=== PATIENT | male | born 1935 | race Caucasian/White ===

== ENCOUNTER 2017-12-18 19:16 | Inpatient (IN) | payer MEDICARE, OTHER, SELFPAY ==
[2017-12-18 19:15] VITALS: BP 143/58; PULSE 80; RESP 18; TEMP 37.3; O2SAT 93; BMI 27.6
[2017-12-18] MEDS: SODIUM CHLORIDE 0.9% 1,000 ML 1000 ML IV (19:54)
[2017-12-18] MEDS: ONDANSETRON 4 MG/2 ML INJ IV (19:54)
[2017-12-18 20:11] VITALS: BP 138/66; PULSE 80; RESP 17; O2SAT 94
[2017-12-18] MEDS: CEFTRIAXONE 1 GM/50 ML FROZ.PIGGY IV (20:13)
[2017-12-18 20:25] LABS: Add Manual Diff / Slide Review NO; Eosinophils Percent Auto 0.3 % (2-4); Hematocrit 35.8 % (41-53); Hemoglobin 11.7 g/dL (13.5-17.5); Lymphocytes Percent Auto 1.4 % (25-40); Mean Corpuscular HGB Conc 32.7 % (30-36); Mean Corpuscular Hemoglobin 29.6 PG (26-34); Mean Corpuscular Volume 90.5 fL (80-100); Monocytes Percent Auto 7.3 % (3-14); Neutrophils Absolute Auto 14600 /uL (3000-5900); Platelet Count 225 X10^3/uL (150-400); Red Blood Cell Count 3.96 X10^6/uL (4.5-5.9); Red Cell Distribution Width 15.7 % (11.6-14.8)
[2017-12-18 20:38] LABS: Alanine Aminotransferase 30 IU/L (21-72); Albumin Globulin Ratio 1.4 (1.0-2.8); Alkaline Phosphatase 66 U/L (38-126); Aspartate Aminotransferase 21 IU/L (17-59); BUN Creatinine Ratio 27.4 (6-22); Bilirubin Total 0.4 mg/dL (0.2-1.3); Blood Urea Nitrogen 52 mg/dL (9-20); Calcium 8.3 mg/dL (8.4-10.2); Carbon Dioxide 25 mmol/L (22-32); Chloride 107 mmol/L (98-107); Estimated Glomerular Filt Rate 34.2 mL/min (>60); Globulin 2.9 g/dL (1.7-4.1); Glucose 149 mg/dL (80-110); HEMOLYSIS < 15 (0-50); Potassium 5.1 mmol/L (3.4-5.1); Sodium 144 mmol/L (137-145); Total Protein 6.9 g/dL (6.3-8.2)
[2017-12-18 20:51] VITALS: BP 102/43; PULSE 77; RESP 16; O2SAT 95
[2017-12-18 20:51] LABS: Lactate (Lactic Acid) 1.3 mmol/L (0.7-2.1)
--- NOTE | 2017-12-18 21:16 | ED_ITS ---
HPI - Nausea/Vomiting/Diarrhea General Chief complaint: Nausea/Vomiting/Diarrhea Stated complaint: Nausea, Emesis Time Seen by Provider: 12/18/17 19:33 Source: patient, family and EMS Mode of arrival: EMS Limitations: no limitations History of Present Illness HPI Narrative: 82-year-old male with no significant medical history presents with 2-3 days of nausea, vomiting, fever as high as 102 F and shaking chills. He has become dizzy, weak and lightheaded. He is having difficulty getting around at home. He denies recent travel, exposure to bad food, new medications , exposure to bad food. 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 She is well and free of complaint. Patient denies any chest pain or shortness of breath. He has no abdominal pain or back pain MD complaint: nausea and vomiting Onset (ago): day(s) Description of Vomiting: food contents Description of Diarrhea: none Associated Abdominal Pain: No Severity: moderate Relieving factors: none Exacerbating factors: none Associated symptoms: fever/chills and weakness Related Data Home Medications Medication Instructions Recorded Confirmed finasteride 5 mg PO DAILY 12/18/17 12/19/17 glipizide 10 mg PO 1-2XD 12/18/17 12/19/17 lisinopril 10 mg PO DAILY 12/18/17 12/19/17 metformin 850 mg PO BID 12/18/17 12/19/17 methotrexate sodium 20 mg/m2 PO QWEEK 12/18/17 12/19/17 tamsulosin 0.4 mg PO DAILY 12/18/17 12/19/17 Centrum Silver Men 1 tab PO DAILY 12/19/17 12/19/17 cranberry 100 mg PO DAILY 12/19/17 12/19/17 docusate sodium 200 mg DAILY 12/19/17 12/19/17 Allergies Allergy/AdvReac Type Severity Reaction Status Date / Time No Known Drug Allergies Allergy Verified 12/18/17 19:20 Review of Systems Review of Systems All systems reviewed & are unremarkable except as noted in HPI and below Constitutional Reports chills, Reports fever(s), Denies lethargy and Reports weakness Eyes Denies change in vision, Denies eye discharge, Denies irritation and Denies loss of vision ENT Ears, Nose, Mouth, and Throat: Denies change in voice, Denies neck pain and Denies sore throat Cardiovascular Denies chest pain, Denies irregular heart rhythm, Denies lightheadedness, Denies palpitations, Denies dyspnea, Denies dyspnea on exertion and Denies orthopnea Respiratory Denies cough, Denies dyspnea, Denies dyspnea on exertion and Denies wheezing Gastrointestinal Gastrointestinal: Reports abdominal pain, Denies change in bowel habits, Denies diarrhea, Reports nausea and Reports vomiting Genitourinary Denies hematuria, Denies flank pain, Denies urinary incontinence and Denies urinary urgency Musculoskeletal Denies neck pain Integumentary/Breasts Denies pruritus, Denies erythema, Denies rash and Denies wounds Neurologic Denies confusion, Denies loss of vision and Reports weakness Psychiatric Denies anxiety, Denies confusion, Denies depression, Denies homicidal ideation and Denies suicidal ideation Endocrine Denies palpitations Hematologic/Lymphatic Denies easy bruising Allergic/Immunologic Denies wheezing PFSH Medical History Diabetes (Acute) HTN (hypertension) (Acute) Social History household members: spouse Smoking Status: Former smoker alcohol intake: former Exam Narrative Exam Narrative: 82-year-old male appears unwell, poor color Initial Vital Signs Initial Vital Signs: Vital Signs Temperature 99.1 F 12/18/17 19:15 Pulse Rate 80 12/18/17 19:15 Respiratory Rate 18 12/18/17 19:15 Blood Pressure 143/58 H 12/18/17 19:15 Pulse Oximetry 93 12/18/17 19:15 Const General: cooperative, well developed and acute distress Nutritional Appearance: well nourished and thin Orientation: alert, awake, oriented x3 and not confused [facility] Head: normocephalic and atraumatic Ears: external ears normal and TM's normal bilaterally Nose: external nose normal and No nasal discharge Face and sinus: sinuses nontender, face symmetric, no sinus tenderness and dry mucous membranes Mouth: moist mucous membranes Teeth and gingiva: dentition normal Throat: tonsils normal and uvula midline Eyes General: appearance normal, both eyes and all related structures Eyelids: eyelids normal Conjunctivae: conjunctivae normal Sclera: sclerae normal Pupils: PERRL EOM: EOM intact bilaterally Neck Neck: normal visual inspection, trachea midline, No lymphadenopathy, No midline deformity and No JVD Lymphatic: No lymphedema Chest Chest: normal inspection of the chest Cardio Rate: regular rate Rhythm: regular rhythm Heart Sounds: no click, no gallops, no murmurs and no rubs Pulses: normal peripheral pulses GI Inspection: non-distended Palpation: soft, no hepatosplenomegaly, No guarding, No pulsatile mass and No tender Auscultation: normal bowel sounds Back/Spine/Pelvis Back: No CVA tenderness Cervical Spine: cervical ROM normal and No pain with cervical ROM Thoracic/Lumbar Spine: thoracic and lumbar spine normal to inspection Neuro General: alert, oriented x3, gait normal and no focal motor deficits Speech: speech normal Extrem General: full ROM, no clubbing, cyanosis or edema, no pedal edema and no calf tenderness Course Orders Ordered: ED Orders 12/19/17 00:02 Clostridium Difficile Tox PCR Stat Stool Culture Stat 12/19/17 00:28 MRSA PCR Stat 12/19/17 05:00 Basic Metabolic Panel Stat Complete Blood Count AUTO DIFF Stat Sodium Chloride (Normal Saline 0.9%) 1,000 mls @ 150 mls/hr IV CONT SUSAN Last Admin: 12/19/17 06:42 Dose: 150 mls/hr Infusion: 12/19/17 06:42 Dose: 150 mls/hr Admin: 12/19/17 00:15 Dose: 150 mls/hr Ondansetron HCl (Zofran) 4 mg IV Q4HR PRN PRN Reason: Nausea And Vomiting Discontinued Medications Sodium Chloride (Normal Saline 0.9%) 1,000 mls @ 1,000 mls/hr IV BOLUS ONE Stop: 12/18/17 20:42 Last Infusion: 12/18/17 20:45 Dose: 0 mls/hr Admin: 12/18/17 19:54 Dose: 1,000 mls/hr Ceftriaxone Sodium/Dextrose (Rocephin) 1 gm in 50 mls @ 100 mls/hr IV NOW ONE Stop: 12/18/17 20:33 Last Infusion: 12/18/17 20:46 Dose: 0 mls/hr Admin: 12/18/17 20:13 Dose: 100 mls/hr Ondansetron HCl (Zofran) 4 mg IV NOW ONE Stop: 12/18/17 19:44 Last Admin: 12/18/17 19:54 Dose: 4 mg Vital Signs - 8 hr 12/19/17 00:18 Temperature 98.2 F Pulse Rate 82 Respiratory Rate 20 Blood Pressure 132/60 Pulse Oximetry 97 MDM - Nausea/Vomiting/Diarrhea Differential Diagnosis Likely traveler's diarrhea, food poisoning, gastroenteritis, clostridium difficile infection, drug-induced nausea and vomiting, dehydration and other Medical Records Attestation: I reviewed the patient's medical records. Lab Data Attestation: I reviewed the patient's lab results. Result diagrams: 12/18/17 20:16 12/18/17 20:16 Lab Results 12/18/17 12/18/17 12/18/17 Range/Units 20:16 20:16 20:16 WBC 16.0 H (4.5-11.0) X10^3/uL RBC 3.96 L (4.5-5.9) X10^6/uL Hgb 11.7 L (13.5-17.5) g/dL Hct 35.8 L (41-53) % MCV 90.5 (80-100) fL MCH 29.6 (26-34) PG MCHC 32.7 (30-36) % RDW 15.7 H (11.6-14.8) % Plt Count 225 (150-400) X10^3/uL Neut % (Auto) 91.0 H (50-75) % Lymph % (Auto) 1.4 L (25-40) % [place] % (Auto) 7.3 (3-14) % Eos % (Auto) 0.3 L (2-4) % Baso % (Auto) 0.0 (0-2) % Neut # (Auto) 34674 H (7746-1386) /uL Sodium 144 (137-145) mmol/L Potassium 5.1 (3.4-5.1) mmol/L Chloride 107 (98-107) mmol/L Carbon Dioxide 25 (22-32) mmol/L BUN 52 H (9-20) mg/dL Creatinine 1.90 H (0.66-1.25) mg/dL Estimated GFR 34.2 L (>60) mL/min BUN/Creatinine Ratio 27.4 H (6-22) Glucose 149 H (80-110) mg/dL Lactate 1.3 (0.7-2.1) mmol/L Calcium 8.3 L (8.4-10.2) mg/dL Total Bilirubin 0.4 (0.2-1.3) mg/dL AST 21 (17-59) IU/L ALT 30 (21-72) IU/L Alkaline Phosphatase 66 (38-126) U/L Total Protein 6.9 (6.3-8.2) g/dL Albumin 4.0 (3.5-5.0) g/dL Globulin 2.9 (1.7-4.1) g/dL Albumin/Globulin Ratio 1.4 (1.0-2.8) Nasal Screen MRSA (PCR) (Negative) 12/19/17 Range/Units 00:28 WBC (4.5-11.0) X10^3/uL RBC (4.5-5.9) X10^6/uL Hgb (13.5-17.5) g/dL Hct (41-53) % MCV (80-100) fL MCH (26-34) PG MCHC (30-36) % RDW (11.6-14.8) % Plt Count (150-400) X10^3/uL Neut % (Auto) (50-75) % Lymph % (Auto) (25-40) % [place] % (Auto) (3-14) % Eos % (Auto) (2-4) % Baso % (Auto) (0-2) % Neut # (Auto) (1790-9506) /uL Sodium (137-145) mmol/L Potassium (3.4-5.1) mmol/L Chloride (98-107) mmol/L Carbon Dioxide (22-32) mmol/L BUN (9-20) mg/dL Creatinine (0.66-1.25) mg/dL Estimated GFR (>60) mL/min BUN/Creatinine Ratio (6-22) Glucose (80-110) mg/dL Lactate (0.7-2.1) mmol/L Calcium (8.4-10.2) mg/dL Total Bilirubin (0.2-1.3) mg/dL AST (17-59) IU/L ALT (21-72) IU/L Alkaline Phosphatase (38-126) U/L Total Protein (6.3-8.2) g/dL Albumin (3.5-5.0) g/dL Globulin (1.7-4.1) g/dL Albumin/Globulin Ratio (1.0-2.8) Nasal Screen MRSA (PCR) Negative for mrsa (Negative) Point of Care Testing Glucose POC 156 Urine Dip Bedside Urine Glucose Negative Bedside Urine Bilirubin - Negative Bedside Urine Ketone - Negative Urine Specific [place] 1.025 Bedside Urine Occult Blood - Negative Bedside Urine pH 6.0 Bedside Urine Protein - Negative Bedside Urine Urobilinogen - Negative Bedside Urine Nitrite - Negative Bedside Urine Leukocytes - Negative Esterase Imaging Data Abdominal x-ray: Attestation: I personally reviewed and interpreted this imaging study as follows: My impression: non obstructive bowel gas pattern MDM Narrative Medical decision making narrative: 82-year-old diabetic hypertensive with fever and shaking chills and clearly dehydrated will need admission to the hospital for further evaluation and stabilization of his condition. Source of septic findings not obvious in the emergency department as the patient has very little complaint and minimal suggestion of etiology at onset. Discharge Plan Departure Patient Disposition: Admitted As Inpatient Clinical Impression: Sepsis, Acute renal failure, Acute dehydration Discharge Date/Time: 12/18/17 23:59 Interventions: ED Discharge Assessment Last Done: 12/18/17 23:58 Admit Date/Time: 12/18/17 23:51 Admit Provider: Pauline Acharya
--- NOTE | 2017-12-18 21:24 | DI.RAD.S_ITS ---
PROCEDURE: XR ACUTE ABDOMEN SERIES INDICATIONS: 82-year-old man with nausea and vomiting. TECHNIQUE: One view chest and two views of the abdomen were acquired. COMPARISON: [facility], , CHEST 2VW, 05/28/2013, 14:44. FINDINGS: Surgical changes and devices: None. Chest: Mild left basilar infiltrate or atelectasis. There is mild left hemidiaphragm elevation.. Heart size is normal. No pleural effusions. No pneumoperitoneum. Abdomen: A large amount of stool in colon. Bowel gas pattern is normal. No suspicious calcifications. Visualized solid organ contours appear normal. Bones: No suspicious bony lesions. IMPRESSION: 1. A large amount of stool in colon consistent with constipation. 2. Left basilar pneumonia or atelectasis. Dictated by: Shiraz Yeager M.D. on 12/19/2017 at 10:02 Approved by: Shiraz Yeager M.D. on 12/19/2017 at 10:03
[2017-12-18 21:34] VITALS: BP 116/65
[2017-12-18 22:49] VITALS: BP 109/56; PULSE 81; RESP 18; TEMP 37.2; O2SAT 94
[2017-12-18 23:58] VITALS: BMI 27.6
[2017-12-19] VITALS (8 sets, daily range): BP systolic 106–144; BP diastolic 50–68; PULSE 54–82; RESP 14–67; TEMP 36.7–37.7; O2SAT 97–99
--- NOTE | 2017-12-19 | DI.US.S_ITS ---
PROCEDURE: US RENAL COMPLETE INDICATIONS: ACUTE RENAL FAILURE TECHNIQUE: Real-time scanning was performed of the kidneys and bladder, with image documentation. COMPARISON: None. FINDINGS: Kidneys: Kidneys are normal in size. Right kidney measures 11.0 cm long; left kidney measures 10.1 cm long. Right renal cortical thickness is 2.1 cm; left renal cortical thickness is 1.8 cm. Renal cortical echotexture is normal. No hydronephrosis or nephrolithiasis. No suspicious solid mass lesions. Bladder: Pre-void bladder volume is 487 mL. Post-void residual is 287 mL. Pre-void images demonstrate no intraluminal masses or stones. On pre-void images, neither ureteral jets are noted with color Doppler interrogation. (Of note, ureteral jets may not be detectable in up to 25% of cases due to insufficient differences in specific gravity between ureteral and bladder urine). Miscellaneous: No free pelvic fluid. IMPRESSION: 1. Normal sonographic appearance of the kidneys bilaterally. 2. Roughly 287 cc urinary bladder postvoid. Dictated by: Alexandre Hernandez [facility] Interpreted: Kenneth Bales MD on 12/19/2017 at 12:11 Approved by: Kenneth Bales M.D. on 12/19/2017 at 14:50
[2017-12-19] MEDS: SODIUM CHLORIDE 0.9% 1,000 ML 150 ML IV ×3 (00:15→19:50)
--- NOTE | 2017-12-19 00:39 | PC.ADMIT ---
[facility] Admission Note: The patient,Jas Zuniga,82 y/o, was given written information regarding hospital policies, unit procedures and contact persons. Patient's smoking status: Former smoker. Vital Signs - 8 hr 12/18/17 19:15 12/18/17 20:11 12/18/17 20:51 Temperature 99.1 F Pulse Rate 80 80 77 Respiratory Rate 18 17 16 Blood Pressure 143/58 H Blood Pressure [Left Arm] 138/66 102/43 L Pulse Oximetry 93 94 95 12/18/17 21:34 12/18/17 22:49 12/19/17 00:18 Temperature 98.9 F 98.2 F Pulse Rate 81 82 Respiratory Rate 18 20 Blood Pressure 132/60 Blood Pressure [Left Arm] 116/65 109/56 L Pulse Oximetry 94 97 Pt arrived via WC in NAD. VSS, afebrile. Denies pain. Denies N/V. Sp02 98% RA. Reports last BM 12/15/17 stating this is normal for him, he frequently goes 7 days with no BM. Unable to collect stool specimen as ordered at this time. IVF infusing per orders. NPO initiated, pt verbalized understanding. Voided via urinal, dark arun urine. Oriented to room, call light and plan of care. Verbalized understanding. Will monitor.
[2017-12-19 07:15] LABS: Add Manual Diff / Slide Review NO; Basophils Percent Auto 0.3 % (0-2); Eosinophils Percent Auto 1.5 % (2-4); Hematocrit 30.7 % (41-53); Hemoglobin 10.1 g/dL (13.5-17.5); Lymphocytes Percent Auto 10.6 % (25-40); Mean Corpuscular HGB Conc 32.8 % (30-36); Mean Corpuscular Hemoglobin 29.8 PG (26-34); Mean Corpuscular Volume 90.8 fL (80-100); Monocytes Percent Auto 10.8 % (3-14); Neutrophils Absolute Auto 10300 /uL (3000-5900); Neutrophils Percent Auto 76.8 % (50-75); Platelet Count 184 X10^3/uL (150-400); Red Blood Cell Count 3.39 X10^6/uL (4.5-5.9); Red Cell Distribution Width 15.5 % (11.6-14.8); White Blood Cell Count 13.4 X10^3/uL (4.5-11.0)
[2017-12-19 07:28] LABS: BUN Creatinine Ratio 30.6 (6-22); Blood Urea Nitrogen 52 mg/dL (9-20); Calcium 7.8 mg/dL (8.4-10.2); Carbon Dioxide 22 mmol/L (22-32); Chloride 111 mmol/L (98-107); Estimated Glomerular Filt Rate 38.9 mL/min (>60); Glucose 100 mg/dL (80-110); HEMOLYSIS < 15 (0-50); Sodium 143 mmol/L (137-145)
--- NOTE | 2017-12-19 11:08 | DI.RAD.S_ITS ---
PROCEDURE: XR CHEST 1V INDICATIONS: fever TECHNIQUE: One view of the chest was acquired. COMPARISON: [facility], , CHEST 2VW, 05/28/2013, 14:44. FINDINGS: Surgical changes and devices: None. Lungs and pleura: There is infiltrate in the left midlung zone. No pleural effusions or pneumothorax. Lungs are clear. Mediastinum: Mediastinal contours appear normal. Heart size is normal. Bones and chest wall: No suspicious bony lesions. Overlying soft tissues appear unremarkable. IMPRESSION: Infiltrate in the left midlung zone suspicious for pneumonia. Dictated by: Shiraz Yeager M.D. on 12/19/2017 at 15:31 Approved by: Shiraz Yeager M.D. on 12/19/2017 at 15:32
--- NOTE | 2017-12-19 11:14 | PM.HP.1 ---
History of Present Illness Date Patient Seen: 12/19/17 Chief complaint: Nausea, Emesis Narrative: Patient is a 82 y/o male who was in his usual state of health until yesterday when he developed an episode of nausea and vomiting yesterday morning. He denies any associated abdominal pain, diarrhea, hemetemsis, melena, or bright red blood per rectum. He had no dysphagia, odynophagia, or heart burn. Patient ate some donuts later and vomitted again. He reports a fever to 101 but no shortness of breath, cough, headache, chills, or runny nose. He denies chestpain, palpitations, orthopnea, or ELENA. He has no recent sick contacts. He has been taking his usual medications. Patient was [facility] to the ED for evaluation. Patient was found to have an elevated WBC, elevated Bun/Creatinine, but no obvious source of infection. His KUB was unremarkable except for stool. Patient has had no further nausea or vomiting since admission. 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) Psoriasis (Acute) Family & Social History Family History: Reviewed 12/19/17 by Pauline Acharya MD Social History: household members spouse Prior Living Arrangements House Safety & Behavioral: Feels Safe in Current Yes Environment Been Physically Hurt or No Threatened By a Person Suicidal Ideation Description None Suicide Plan Description No Plan Tobacco & Substance use: Smoking Status Former smoker alcohol intake former alcohol intake frequency 0-2 drinks per day Substance Use Type does not use Meds Home Medications Medication Instructions Recorded Confirmed Type finasteride 5 mg PO DAILY 12/18/17 12/19/17 History glipizide 10 mg PO 1-2XD 12/18/17 12/19/17 History lisinopril 10 mg PO DAILY 12/18/17 12/19/17 History metformin 850 mg PO BID 12/18/17 12/19/17 History methotrexate sodium 20 mg/m2 PO QWEEK 12/18/17 12/19/17 History tamsulosin 0.4 mg PO DAILY 12/18/17 12/19/17 History Centrum Silver Men 1 tab PO DAILY 12/19/17 12/19/17 History cranberry 100 mg PO DAILY 12/19/17 12/19/17 History docusate sodium 200 mg DAILY 12/19/17 12/19/17 History Allergies Allergy/AdvReac Type Severity Reaction Status Date / Time No Known Drug Allergies Allergy Verified 12/18/17 19:20 Review of Systems Review of Systems All systems reviewed & are unremarkable except as noted in HPI and below Exam Vital Signs (past 8 hours): - 12/19/17 08:02 Temperature 99.7 F H Pulse Rate 68 Respiratory Rate 14 Blood Pressure 106/68 Pulse Oximetry 97 Oxygen Delivery Method Room Air Const General: cooperative, healthy appearing and comfortable [facility] Head: normal to inspection, normocephalic and atraumatic Ears: hearing grossly normal bilaterally and external ears normal Nose: external nose normal and nares normal Face and sinus: normal facial exam Mouth: oral mucosae normal Teeth and gingiva: dentition normal Throat: posterior oropharynx normal and uvula midline Eyes Eyelids: eyelids normal Conjunctivae: conjunctivae normal Sclera: sclerae normal Pupils: PERRL EOM: EOM intact bilaterally Neck Carotids: normal carotid upstroke Chest Chest: normal inspection of the chest Resp Effort & Inspection: normal respiratory effort and able to speak in complete sentences Auscultation: clear to auscultation bilaterally Cardio Palpation: normal PMI Rate: regular rate Rhythm: regular rhythm Heart Sounds: S1 normal and S2 normal GI Inspection: normal to inspection Palpation: soft and no hepatosplenomegaly Percussion: normal to percussion Auscultation: normal bowel sounds Back/Spine/Pelvis Thoracic/Lumbar Spine: thoracic and lumbar spine normal to inspection Skin Lesions: no lesions Rashes: no rashes Nails: normal Extrem General: normal to inspection and no pedal edema Left upper extremity: normal to inspection Right lower extremity: normal to inspection Left lower extremity: normal to inspection Psych Appearance: grossly normal Mental Status: mental status grossly normal Mood: congruent mood Affect: normal affect Attitude: cooperative Thought Process: normal Thought Content: normal Judgment: judgment good Objective Labs Result Diagrams: 12/19/17 06:40 12/19/17 06:40 Labs: Laboratory Results - last 24 hr 12/18/17 12/18/17 12/18/17 20:16 20:16 20:16 WBC 16.0 H RBC 3.96 L Hgb 11.7 L Hct 35.8 L MCV 90.5 MCH 29.6 MCHC 32.7 RDW 15.7 H Plt Count 225 Neut % (Auto) 91.0 H Lymph % (Auto) 1.4 L [place] % (Auto) 7.3 Eos % (Auto) 0.3 L Baso % (Auto) 0.0 Neut # (Auto) 24798 H Sodium 144 Potassium 5.1 Chloride 107 Carbon Dioxide 25 BUN 52 H Creatinine 1.90 H Estimated GFR 34.2 L BUN/Creatinine Ratio 27.4 H Glucose 149 H Lactate 1.3 Calcium 8.3 L Total Bilirubin 0.4 AST 21 ALT 30 Alkaline Phosphatase 66 Total Protein 6.9 Albumin 4.0 Globulin 2.9 Albumin/Globulin Ratio 1.4 Nasal Screen MRSA (PCR) 12/19/17 12/19/17 12/19/17 00:28 06:40 06:40 WBC 13.4 H RBC 3.39 L Hgb 10.1 L Hct 30.7 L MCV 90.8 MCH 29.8 MCHC 32.8 RDW 15.5 H Plt Count 184 Neut % (Auto) 76.8 H Lymph % (Auto) 10.6 L [place] % (Auto) 10.8 Eos % (Auto) 1.5 L Baso % (Auto) 0.3 Neut # (Auto) 05235 H Sodium 143 Potassium 5.0 Chloride 111 H Carbon Dioxide 22 BUN 52 H Creatinine 1.70 H Estimated GFR 38.9 L BUN/Creatinine Ratio 30.6 H Glucose 100 Lactate Calcium 7.8 L Total Bilirubin AST ALT Alkaline Phosphatase Total Protein Albumin Globulin Albumin/Globulin Ratio Nasal Screen MRSA (PCR) Negative for mrsa Assessment & Plan (1) Psoriasis: Problem details: Hold methotrexate for now. Can resume as an outpatient Current visit: Yes Status: Acute (2) Diabetes: Problem details: Hold metformin and glipizide for now. Will cover with lantus and aspart. Will check Hgb A1c and fasting lipids Current visit: Yes Status: Acute (3) HTN (hypertension): Problem details: Hold lisinopril given elevated creatinine Current visit: Yes Status: Acute (4) Nausea & vomiting: Problem details: continue IV hydrations and antiemetics Current visit: Yes Status: Acute (5) Acute renal failure: Problem details: hold lisinopril, Continue IV hydration, Check renal ultrasound Current visit: Yes Status: Acute (6) Acute dehydration: Problem details: Continue IV hydration Current visit: Yes Status: Acute Plan: Assessment/Plan Narrative: Repeat Chest Xray to r/o infiltrate Full code Quality VTE Deep Vein Thrombosis/Pulmonary Embolism Present on Admission: No
--- NOTE | 2017-12-19 11:26 | P.HP_ITS ---
History of Present Illness Date Patient Seen: 12/19/17 Chief complaint: Nausea, Emesis Narrative: Patient is a 82 y/o male who was in his usual state of health until yesterday when he developed an episode of nausea and vomiting yesterday morning. He denies any associated abdominal pain, diarrhea, hemetemsis, melena, or bright red blood per rectum. He had no dysphagia, odynophagia, or heart burn. Patient ate some donuts later and vomitted again. He reports a fever to 101 but no shortness of breath, cough, headache, chills, or runny nose. He denies chestpain, palpitations, orthopnea, or ELENA. He has no recent sick contacts. He has been taking his usual medications. Patient was BIBM to the ED for evaluation. Patient was found to have an elevated WBC, elevated Bun/ Creatinine, but no obvious source of infection. His KUB was unremarkable except for stool. Patient has had no further nausea or vomiting since admission. 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) Psoriasis (Acute) Family & Social History Family History: Reviewed 12/19/17 by Pauline Acharya MD Social History: household members spouse Prior Living Arrangements House Safety & Behavioral: Feels Safe in Current Yes Environment Been Physically Hurt or No Threatened By a Person Suicidal Ideation Description None Suicide Plan Description No Plan Tobacco & Substance use: Smoking Status Former smoker alcohol intake former alcohol intake frequency 0-2 drinks per day Substance Use Type does not use Meds Home Medications Medication Instructions Recorded Confirmed Type finasteride 5 mg PO DAILY 12/18/17 12/19/17 History glipizide 10 mg PO 1-2XD 12/18/17 12/19/17 History lisinopril 10 mg PO DAILY 12/18/17 12/19/17 History metformin 850 mg PO BID 12/18/17 12/19/17 History methotrexate sodium 20 mg/m2 PO QWEEK 12/18/17 12/19/17 History tamsulosin 0.4 mg PO DAILY 12/18/17 12/19/17 History Centrum Silver Men 1 tab PO DAILY 12/19/17 12/19/17 History cranberry 100 mg PO DAILY 12/19/17 12/19/17 History docusate sodium 200 mg DAILY 12/19/17 12/19/17 History Allergies Allergy/AdvReac Type Severity Reaction Status Date / Time No Known Drug Allergies Allergy Verified 12/18/17 19:20 Review of Systems Review of Systems All systems reviewed & are unremarkable except as noted in HPI and below Exam Vital Signs (past 8 hours): - 12/19/17 08:02 Temperature 99.7 F H Pulse Rate 68 Respiratory Rate 14 Blood Pressure 106/68 Pulse Oximetry 97 Oxygen Delivery Method Room Air Const General: cooperative, healthy appearing and comfortable [facility] Head: normal to inspection, normocephalic and atraumatic Ears: hearing grossly normal bilaterally and external ears normal Nose: external nose normal and nares normal Face and sinus: normal facial exam Mouth: oral mucosae normal Teeth and gingiva: dentition normal Throat: posterior oropharynx normal and uvula midline Eyes Eyelids: eyelids normal Conjunctivae: conjunctivae normal Sclera: sclerae normal Pupils: PERRL EOM: EOM intact bilaterally Neck Carotids: normal carotid upstroke Chest Chest: normal inspection of the chest Resp Effort & Inspection: normal respiratory effort and able to speak in complete sentences Auscultation: clear to auscultation bilaterally Cardio Palpation: normal PMI Rate: regular rate Rhythm: regular rhythm Heart Sounds: S1 normal and S2 normal GI Inspection: normal to inspection Palpation: soft and no hepatosplenomegaly Percussion: normal to percussion Auscultation: normal bowel sounds Back/Spine/Pelvis Thoracic/Lumbar Spine: thoracic and lumbar spine normal to inspection Skin Lesions: no lesions Rashes: no rashes Nails: normal Extrem General: normal to inspection and no pedal edema Left upper extremity: normal to inspection Right lower extremity: normal to inspection Left lower extremity: normal to inspection Psych Appearance: grossly normal Mental Status: mental status grossly normal Mood: congruent mood Affect: normal affect Attitude: cooperative Thought Process: normal Thought Content: normal Judgment: judgment good Objective Labs Result Diagrams: 12/19/17 06:40 12/19/17 06:40 Labs: Laboratory Results - last 24 hr 12/18/17 12/18/17 12/18/17 20:16 20:16 20:16 WBC 16.0 H RBC 3.96 L Hgb 11.7 L Hct 35.8 L MCV 90.5 MCH 29.6 MCHC 32.7 RDW 15.7 H Plt Count 225 Neut % (Auto) 91.0 H Lymph % (Auto) 1.4 L [place] % (Auto) 7.3 Eos % (Auto) 0.3 L Baso % (Auto) 0.0 Neut # (Auto) 74480 H Sodium 144 Potassium 5.1 Chloride 107 Carbon Dioxide 25 BUN 52 H Creatinine 1.90 H Estimated GFR 34.2 L BUN/Creatinine Ratio 27.4 H Glucose 149 H Lactate 1.3 Calcium 8.3 L Total Bilirubin 0.4 AST 21 ALT 30 Alkaline Phosphatase 66 Total Protein 6.9 Albumin 4.0 Globulin 2.9 Albumin/Globulin Ratio 1.4 Nasal Screen MRSA (PCR) 12/19/17 12/19/17 12/19/17 00:28 06:40 06:40 WBC 13.4 H RBC 3.39 L Hgb 10.1 L Hct 30.7 L MCV 90.8 MCH 29.8 MCHC 32.8 RDW 15.5 H Plt Count 184 Neut % (Auto) 76.8 H Lymph % (Auto) 10.6 L [place] % (Auto) 10.8 Eos % (Auto) 1.5 L Baso % (Auto) 0.3 Neut # (Auto) 08445 H Sodium 143 Potassium 5.0 Chloride 111 H Carbon Dioxide 22 BUN 52 H Creatinine 1.70 H Estimated GFR 38.9 L BUN/Creatinine Ratio 30.6 H Glucose 100 Lactate Calcium 7.8 L Total Bilirubin AST ALT Alkaline Phosphatase Total Protein Albumin Globulin Albumin/Globulin Ratio Nasal Screen MRSA (PCR) Negative for mrsa Assessment & Plan (1) Psoriasis: Problem details: Hold methotrexate for now. Can resume as an outpatient Current visit: Yes Status: Acute (2) Diabetes: Problem details: Hold metformin and glipizide for now. Will cover with lantus and aspart. Will check Hgb A1c and fasting lipids Current visit: Yes Status: Acute (3) HTN (hypertension): Problem details: Hold lisinopril given elevated creatinine Current visit: Yes Status: Acute (4) Nausea & vomiting: Problem details: continue IV hydrations and antiemetics Current visit: Yes Status: Acute (5) Acute renal failure: Problem details: hold lisinopril, Continue IV hydration, Check renal ultrasound Current visit: Yes Status: Acute (6) Acute dehydration: Problem details: Continue IV hydration Current visit: Yes Status: Acute Plan: Assessment/Plan Narrative: Repeat Chest Xray to r/o infiltrate Full code Quality VTE Deep Vein Thrombosis/Pulmonary Embolism Present on Admission: No
[2017-12-19 12:29] LABS: Cholesterol 95 mg/dL (140-199); HDL Cholesterol 29 mg/dL (40-60); LDL Cholesterol Calculated 50 mg/dL (<100); Triglycerides 78 mg/dL (35-150)
[2017-12-19 12:40] LABS: Hemoglobin A1C% w Est Avg Glu 6.5 % (4.0-6.0)
[2017-12-19] MEDS: TAMSULOSIN 0.4 MG CAPSULE PO (13:42)
[2017-12-19] MEDS: ENOXAPARIN 30 MG/0.3 ML SYRINGE SUBCUT (13:42)
[2017-12-19] MEDS: FINASTERIDE 5 MG TABLET PO (13:42)
[2017-12-19] MEDS: DOCUSATE 100 MG CAPSULE PO ×2 (13:42→20:32)
[2017-12-19 14:54] LABS: Bacteria Urine None Seen; RBC Urine None Seen (0-5/HPF); WBC Urine None Seen (0-5/HPF)
[2017-12-19 14:55] LABS: Appearance Urine UA CLEAR; Bilirubin Urine UA NEGATIVE (NEGATIVE); Color Urine UA YELLOW; Glucose Urine UA NEGATIVE (Normal); Ketones Urine UA NEGATIVE (NEGATIVE); Leukocyte Esterase Urine UA NEGATIVE (NEGATIVE); Nitrite Urine UA Negative (Negative); Occult Blood Urine UA NEGATIVE (Negative); Protein Urine UA NEGATIVE (Negative); Specific Gravity Urine UA 1.015 (1.000-1.035); Urobilinogen Urine UA 0.2 E.U./dL (0.2)
[2017-12-19 15:13] LABS: Culture Indicated Urine Cult Not Indicated; Urine Comments Microscopic Normal
--- NOTE | 2017-12-19 15:31 | PC.NURSE ---
Am shift Pt has been A/ox3, cooperative with care, lungs CTA, denies SOB Spo2 96% RA. No c/o nausea or emesis, tolerating clear liquid diet well. 1pa to FWW for bedside urinal. Discussed setting boundries with famliy at home calling frequently this shift, holding phone calls when Pt requests. UPdate given to director of academic support for incarcerated adult son. Care management consult placed for respite assistance as Pt has notable home stressor and is only caregiver.
[2017-12-19] MEDS: SODIUM CHLORIDE NASAL SPRAY 1 SPRAY NASAL (20:30)
[2017-12-19 21:20] LABS: Enterococcus species Not Detected (Not Detect); Listeria monocytogenes Not Detected (Not Detect); Staphylococcus species Detected (Not Detect); Vancomycin-rest genes A/B Not Detected (Not Detect)
[2017-12-19 21:21] LABS: Acinetobacter baumannii Not Detected (Not Detect); Candida albicans Not Detected (Not Detect); Candida glabrata Not Detected (Not Detect); Candida krusei Not Detected (Not Detect); Candida parapsilosis Not Detected (Not Detect); Candida tropicalis Not Detected (Not Detect); E. coli Not Detected (Not Detect); Enterobacter cloacae complex Not Detected (Not Detect); Enterobacteriaceae species Not Detected (Not Detect); Haemophilus influenzae Not Detected (Not Detect); KPC (carbapenem-resist gene) Not Detected (Not Detect); Methicillin-resistant gene Not Detected (Not Detect); Neisseria meningitidis Not Detected (Not Detect); Proteus species Not Detected (Not Detect); Pseudomonas aeruginosa Not Detected (Not Detect); Serratia marcescens Not Detected (Not Detect); Streptococcus agalactiae (Gr B Not Detected (Not Detect); Streptococcus pneumonia Not Detected (Not Detect); Streptococcus pyogenes (Gr A) Not Detected (Not Detect); Streptococcus species Not Detected (Not Detect)
[2017-12-19] MEDS: WATER IV (22:38)
[2017-12-19] MEDS: VANCOMYCIN IV (22:38)
[2017-12-19] MEDS: DEXTROSE 5% IV (22:38)
[2017-12-20] MEDS: SODIUM CHLORIDE 0.9% 1,000 ML 150 ML IV (04:10)
[2017-12-20 05:20] VITALS: BP 135/54; PULSE 56; RESP 17; TEMP 37.2; O2SAT 97
[2017-12-20 05:44] LABS: Add Manual Diff / Slide Review NO; Basophils Percent Auto 0.3 % (0-2); Eosinophils Percent Auto 2.3 % (2-4); Hematocrit 28.7 % (41-53); Hemoglobin 9.6 g/dL (13.5-17.5); Lymphocytes Percent Auto 18.2 % (25-40); Mean Corpuscular HGB Conc 33.5 % (30-36); Mean Corpuscular Hemoglobin 30.1 PG (26-34); Mean Corpuscular Volume 89.9 fL (80-100); Monocytes Percent Auto 10.1 % (3-14); Neutrophils Absolute Auto 6000 /uL (3000-5900); Neutrophils Percent Auto 69.1 % (50-75); Platelet Count 180 X10^3/uL (150-400); Red Cell Distribution Width 15.7 % (11.6-14.8); White Blood Cell Count 8.7 X10^3/uL (4.5-11.0)
[2017-12-20 05:45] LABS: Alanine Aminotransferase 29 IU/L (21-72); Albumin Globulin Ratio 1.2 (1.0-2.8); Alkaline Phosphatase 50 U/L (38-126); Aspartate Aminotransferase 33 IU/L (17-59); BUN Creatinine Ratio 23.1 (6-22); Bilirubin Total 0.2 mg/dL (0.2-1.3); Blood Urea Nitrogen 30 mg/dL (9-20); Calcium 7.8 mg/dL (8.4-10.2); Carbon Dioxide 23 mmol/L (22-32); Chloride 113 mmol/L (98-107); Globulin 2.6 g/dL (1.7-4.1); Glucose 92 mg/dL (80-110); HEMOLYSIS < 15 (0-50); Potassium 4.3 mmol/L (3.4-5.1); Sodium 144 mmol/L (137-145); Total Protein 5.6 g/dL (6.3-8.2)
[2017-12-20 08:03] VITALS: BP 159/66; PULSE 62; RESP 16; TEMP 37.7; O2SAT 98
[2017-12-20] MEDS: DOCUSATE 100 MG CAPSULE PO (08:31)
[2017-12-20] MEDS: ENOXAPARIN 30 MG/0.3 ML SYRINGE SUBCUT (08:31)
[2017-12-20] MEDS: TAMSULOSIN 0.4 MG CAPSULE PO (08:32)
[2017-12-20] MEDS: FINASTERIDE 5 MG TABLET PO (08:32)
--- NOTE | 2017-12-20 09:04 | PM.DS.1 ---
History of Present Illness Chief complaint: Nausea, Emesis Narrative: Patient is a 82 y/o male who was in his usual state of health until yesterday when he developed an episode of nausea and vomiting yesterday morning. He denies any associated abdominal pain, diarrhea, hemetemsis, melena, or bright red blood per rectum. He had no dysphagia, odynophagia, or heart burn. Patient ate some donuts later and vomitted again. He reports a fever to 101 but no shortness of breath, cough, headache, chills, or runny nose. He denies chestpain, palpitations, orthopnea, or ELENA. He has no recent sick contacts. He has been taking his usual medications. Patient was BIBM to the ED for evaluation. Patient was found to have an elevated WBC, elevated Bun/Creatinine, but no obvious source of infection. His KUB was unremarkable except for stool. Patient has had no further nausea or vomiting since admission. 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 Patient is admitted at this time for further evaluation Discharge Providers Date of admission: 12/18/17 23:51 Consults: 12/19/17 09:26 Consult to Design And Sales Consultant Routine Comment: Pt is primary caregiver for aging and brother Discharge provider: Pauline Acharya MD Summary Discharge Diagnosis: Left lower lobe pneumonia Hypertension Type 2 Diabetes Mellitus Urinary retention Hospital Course: Patient presented to the hospital with nausea, emesis, and fever. He had no hypoxia, cough, or shortness of breath. Chest Xray suggested a Left Lower Lobe pneumonia. Patient was dehydrated and had improvement with hydrations. His creatinine was elevated on admission and improved significantly with hydration. The patient had a renal ultrasound which was negative for obstruction. Patient was deemed appropriate for discharge home. Status at Discharge Functional status at discharge: independent ambulation Overall status at discharge: patient is back to baseline Time Spent with Patient Less than 30 minutes Exam Vital Signs (past 8 hours): - 12/20/17 05:20 12/20/17 08:03 Temperature 98.9 F 99.8 F H Pulse Rate 56 L 62 Respiratory Rate 17 16 Blood Pressure 135/54 L 159/66 H Pulse Oximetry 97 98 Oxygen Delivery Method Room Air Narrative Exam Narrative: No complaints, overall feels significantly improved Lungs: Clear to auscultation CV: RRR Nl S1S2 Abd: soft/non tender non distended Ext: no edema Objective Labs Result Diagrams: 12/20/17 05:16 12/20/17 05:16 Labs: Laboratory Results - last 24 hr 12/18/17 12/19/17 12/19/17 20:21 06:40 06:40 WBC RBC Hgb Hct MCV MCH MCHC RDW Plt Count Neut % (Auto) Lymph % (Auto) [place] % (Auto) Eos % (Auto) Baso % (Auto) Neut # (Auto) Sodium Potassium Chloride Carbon Dioxide BUN Creatinine Estimated GFR BUN/Creatinine Ratio Glucose Hemoglobin A1c 6.5 H Calcium Total Bilirubin AST ALT Alkaline Phosphatase Total Protein Albumin Globulin Albumin/Globulin Ratio Triglycerides 78 Cholesterol 95 L LDL Cholesterol, Calc 50 HDL Cholesterol 29 L Urine Color Urine Appearance Urine pH Ur Specific [place] Urine Protein Urine Glucose (UA) Urine Ketones Urine Occult Blood Urine Nitrate Urine Bilirubin Urine Urobilinogen Ur Leukocyte Esterase Urine RBC Urine WBC Urine Bacteria Ur Culture Indicated? Micro UA Comment A. baumannii (PCR) Not detected Ksenia albicans (PCR) Not detected C. glabrata (PCR) Not detected C. krusei (PCR) Not detected C. parapsilosis (PCR) Not detected C. tropicalis (PCR) Not detected Enterobacteriac sp PCR Not detected E. cloacae complex PCR Not detected Enterococcus sp PCR Not detected E. coli (PCR) Not detected H. influenzae (PCR) Not detected Klebsiella oxytoca PCR Not detected Klebsiella pneumoniae Not detected List. monocytogenes PCR Not detected N. meningitidis (PCR) Not detected Proteus species (PCR) Not detected Serratia marcescens PCR Not detected Staphylococcus sp PCR Detected H Staph aureus (PCR) Not detected mecA-Methicil Res Gene Not detected Streptococcus sp PCR Not detected Group A Strep (PCR) Not detected Strep agalactiae (PCR) Not detected Strep pneumoniae (PCR) Not detected P. aeruginosa (PCR) Not detected Miguel A/B-Vanco Res Genes Not detected KPC-Carbap Res Gene PCR Not detected 12/19/17 12/20/17 12/20/17 Unknown 05:16 05:16 WBC 8.7 RBC 3.20 L Hgb 9.6 L Hct 28.7 L MCV 89.9 MCH 30.1 MCHC 33.5 RDW 15.7 H Plt Count 180 Neut % (Auto) 69.1 Lymph % (Auto) 18.2 L [place] % (Auto) 10.1 Eos % (Auto) 2.3 Baso % (Auto) 0.3 Neut # (Auto) 6000 H Sodium 144 Potassium 4.3 Chloride 113 H Carbon Dioxide 23 BUN 30 H Creatinine 1.30 H Estimated GFR 53.0 L BUN/Creatinine Ratio 23.1 H Glucose 92 Hemoglobin A1c Calcium 7.8 L Total Bilirubin 0.2 AST 33 ALT 29 Alkaline Phosphatase 50 Total Protein 5.6 L Albumin 3.0 L Globulin 2.6 Albumin/Globulin Ratio 1.2 Triglycerides Cholesterol LDL Cholesterol, Calc HDL Cholesterol Urine Color Yellow Urine Appearance Clear Urine pH 5.0 Ur Specific [place] 1.015 Urine Protein Negative Urine Glucose (UA) Negative Urine Ketones Negative Urine Occult Blood Negative Urine Nitrate Negative Urine Bilirubin Negative Urine Urobilinogen 0.2 Ur Leukocyte Esterase Negative Urine RBC None seen Urine WBC None seen Urine Bacteria None seen Ur Culture Indicated? Cult not indicated Micro UA Comment Microscopic normal A. baumannii (PCR) Ksenia albicans (PCR) C. glabrata (PCR) C. krusei (PCR) C. parapsilosis (PCR) C. tropicalis (PCR) Enterobacteriac sp PCR E. cloacae complex PCR Enterococcus sp PCR E. coli (PCR) H. influenzae (PCR) Klebsiella oxytoca PCR Klebsiella pneumoniae List. monocytogenes PCR N. meningitidis (PCR) Proteus species (PCR) Serratia marcescens PCR Staphylococcus sp PCR Staph aureus (PCR) mecA-Methicil Res Gene Streptococcus sp PCR Group A Strep (PCR) Strep agalactiae (PCR) Strep pneumoniae (PCR) P. aeruginosa (PCR) Miguel A/B-Vanco Res Genes KPC-Carbap Res Gene PCR Discharge Plan Discharge Plan Discharge Problem: Sepsis, Acute renal failure, Acute dehydration Patient Disposition: Home Discharge comment: improved and ready for discharge home Discharge Med Rec/Prescriptions Prescriptions: No Action finasteride 5 mg Tablet 5 mg PO DAILY RF: 0 methotrexate sodium 2.5 mg Tablet 20 mg/m2 PO QWEEK RF: 0 lisinopril 10 mg Tablet 10 mg PO DAILY RF: 0 metformin 850 mg Tablet 850 mg PO BID RF: 0 glipizide 5 mg Tablet 10 mg PO 1-2XD RF: 0 tamsulosin 0.4 mg Capsule 0.4 mg PO DAILY RF: 0 Centrum Silver Men 1 tab PO DAILY RF: 0 cranberry 100 mg PO DAILY RF: 0 docusate sodium 200 mg DAILY RF: 0 Provider Discharge Instructions Diet: Low-sodium Activity: as tolerated Oxygen: not indicated Skin/Wound/Dressing Care Report to your healthcare provider any signs of infection, such as:: chills, fever Discharge Data Attending Provider: Pauline Acharya Admit Date/Time: 12/18/17 23:51 Quality VTE Deep Vein Thrombosis/Pulmonary Embolism Present on Admission: No
--- NOTE | 2017-12-20 11:49 | CM.DANOTE ---
Addendum entered by Chanel Castro LPN 12/20/17 11:52: Met now with pt after Dr. Acharya noted in morning team rounds that pt would be going home today, clinic followup with his PCP and no concerns re the d/c process. Introduced self and role. Pt is an 82 year old male who lives in [place] with his spouse. PCP: Dr. Elmer Escalante Payer: Medicare and [employer]. Pt says he was scheduled to have his annual physical sometime this month and he will be making an appt with Dr. Escalante once he gets home. Pt is a/o, functionally independent at baseline. His does not drive but he says she has organizied a ride to pick him up and that will be here momentarily. No d/c concerns are expressed by pt or the care team members. Original Note: Discharge Planning/Care Management DCP: assessment: case received yesterday, EMR reviewed and discussed in morning team meeting. PT had just admitted to ICU setting 12/[address] Acharya was to see him shortly. Decision made to defer check in with pt until today as d/c was not anticipated and as part of caseload triage needs. CM Discharge Assessment Start: 12/20/17 11:44 Freq: Status: Active Protocol: Document 12/20/17 11:45 ITV (Rec: 12/20/17 11:48 ITV [id number]) Discharge Planning Assessment Advance Directives? No History Provided By Patient Medical Record Prior Living Arrangements House Household Members spouse Barriers to Discharge No Whiteboard Updated in Patient Room with No name and ext. # of Ux Consultant Comment at time of meeting pt was prepared to d/c as soon as ride arrived. CATIE Mora given contact # in case of last minute needs Review Status In Process Next Review Type Continued Stay Review
== END 2017-12-20 12:12 | disposition home or self-care (01) | DRG 194 ==
LOC: ED 19:38 → ICU 23:55
PROVIDERS: Admitting Provider Internal Medicine; Emergency Provider Emergency Medicine; Visit Provider Internal Medicine
DX: J18.9 Pneumonia, unspecified organism (principal); N17.9 Acute kidney failure, unspecified; L40.9 Psoriasis, unspecified; E86.0 Dehydration; E11.9 Type 2 diabetes mellitus without complications; Z79.84 Long term (current) use of oral hypoglycemic drugs; I10 Essential (primary) hypertension; Z87.891 Personal history of nicotine dependence; R11.2 Nausea with vomiting, unspecified; R33.9 Retention of urine, unspecified
CPT/HCPCS: 36415; 71045; 74022; 76770; 80048; 80053; 80061; 81001; 81003; 82962; 83036; 83605; 85025; 87040; 87077; 87147; 87150; 87205; 87797; 96365; 96375; 99283; 99284; J1650; J2405; J3370

== ENCOUNTER 2021-04-24 10:40 | Emergency (ER) | payer MEDICARE, OTHER, SELFPAY ==
[2021-04-24] VITALS (23 sets, daily range): BP systolic 178–215; BP diastolic 66–88; PULSE 60–77; RESP 7–26; TEMP 36.8; O2SAT 97–100; BMI 28.5
--- NOTE | 2021-04-24 12:01 | DI.RAD.S_ITS ---
PROCEDURE: XR CHEST 1V INDICATIONS: Dizziness TECHNIQUE: One view of the chest was acquired. COMPARISON: [facility], CR, XR CHEST 1V, 12/19/2017, 12:53. FINDINGS: Surgical changes and devices: None. Lungs and pleura: Lungs are clear. No pleural effusions or pneumothorax. Mediastinum: Mediastinal contours appear normal. Heart size is normal. Bones and chest wall: No suspicious bony lesions. Overlying soft tissues appear unremarkable. IMPRESSION: No acute cardiopulmonary disease process. Dictated by: Park Colindres MD, PhD on 04/24/2021 at 11:25 Approved by: Park Colindres MD, PhD on 04/24/2021 at 11:26
[2021-04-24 12:03] LABS: COVID19 -Nasal RAPID Negative (Negative)
[2021-04-24 12:18] LABS: BUN Creatinine Ratio 24.6 (6-22); Blood Urea Nitrogen 32 mg/dL (9-20); Calcium 8.9 mg/dL (8.4-10.2); Carbon Dioxide 30 mmol/L (22-32); Chloride 106 mmol/L (98-107); Estimated Glomerular Filt Rate 52.6 mL/min (>60); Glucose 126 mg/dL (80-110); HEMOLYSIS < 15 (0-50); Sodium 139 mmol/L (137-145)
[2021-04-24 12:19] LABS: Add Manual Diff / Slide Review NO; Basophils Absolute Auto 0 /uL (0-100); Basophils Percent Auto 0.6 % (0-2); Eosinophils Absolute Auto 200 /uL (0-450); Hematocrit 27.8 % (41-53); Hemoglobin 9.5 g/dL (13.5-17.5); Lymphocytes Absolute Auto 1200 /uL (1100-4500); Lymphocytes Percent Auto 18.5 % (25-40); Mean Corpuscular HGB Conc 34.3 % (30-36); Mean Corpuscular Volume 87.6 fL (80-100); Monocytes Absolute Auto 800 /uL (0-900); Monocytes Percent Auto 11.4 % (3-14); Neutrophils Absolute Auto 4400 /uL (1500-7000); Neutrophils Percent Auto 66.5 % (50-75); Platelet Count 352 X10^3/uL (150-400); Red Blood Cell Count 3.18 X10^6/uL (4.5-5.9); Red Cell Distribution Width 13.7 % (11.6-14.8); White Blood Cell Count 6.7 X10^3/uL (4.5-11.0)
[2021-04-24 12:30] LABS: Troponin I < 0.012 ng/mL (0.01-0.034)
[2021-04-24 13:41] LABS: COVID19 - ADMIT (NP swab/PCR) Negative (Negative)
--- NOTE | 2021-04-24 15:00 | ED.WEAKNESS ---
HPI - Weakness <Phylicia Ng PA-C - Last Filed: 04/24/21 18:03> General Chief complaint: Weakness Stated complaint: Weakness Time Seen by Provider: 04/24/21 12:03 Source: patient and EMS Mode of arrival: EMS History of Present Illness HPI Narrative: 85-year-old male with past medical history diabetes presents to the ED with general weakness. Patient is brought in by his son who reports that the patient needs home health care or placement since he is unable to stand up or walk without difficulty. Patient denies any symptoms. Patient denies fevers, chills, chest pain, shortness of breath, cough, nausea, vomiting, abdominal pain, dysuria, lightheadedness, dizziness, syncope. Patient states that he intermittently has some numbness in his bilateral feet, which he believes is due to diabetic neuropathy. Related Data Home Medications Medication Instructions Recorded Confirmed finasteride 5 mg tablet 5 mg PO DAILY 12/18/17 12/19/17 glipizide 5 mg tablet 10 mg PO 1-2XD 12/18/17 12/19/17 lisinopril 10 mg tablet 10 mg PO DAILY 12/18/17 12/19/17 metformin 850 mg tablet 850 mg PO BID 12/18/17 12/19/17 methotrexate sodium 2.5 mg tablet 20 mg/m2 PO QWEEK 12/18/17 12/19/17 tamsulosin 0.4 mg capsule 0.4 mg PO DAILY 12/18/17 12/19/17 Centrum Silver Men 1 tab PO DAILY 12/19/17 12/19/17 cranberry 100 mg PO DAILY 12/19/17 12/19/17 docusate sodium 200 mg DAILY 12/19/17 12/19/17 Previous Rx's Medication Instructions Recorded levofloxacin 750 mg tablet 750 mg PO DAILY #5 tab 12/20/17 Allergies Allergy/AdvReac Type Severity Reaction Status Date / Time No Known Drug Allergies Allergy Verified 04/24/21 11:07 Review of Systems <Phylicia Ng PA-C - Last Filed: 04/24/21 18:03> Review of Systems ROS Unobtainable: All systems reviewed & are unremarkable except as noted in HPI and below Constitutional Constitutional: Denies chills, Denies fatigue, Denies fever(s), Denies frequent falls, Denies lethargy and Reports weakness Eyes Eyes: Denies change in vision, Denies eye discharge, Denies irritation and Denies loss of vision ENT Ears, Nose, Mouth, and Throat: Denies change in voice, Denies dizziness, Denies neck pain, Denies sore throat and Denies throat swelling Cardiovascular Cardiovascular: Denies chest pain, Denies irregular heart rhythm, Denies lightheadedness, Denies palpitations, Denies dyspnea, Denies dyspnea on exertion and Denies orthopnea Respiratory Respiratory: Denies cough, Denies dyspnea, Denies dyspnea on exertion and Denies wheezing Gastrointestinal Gastrointestinal: Denies abdominal pain, Denies change in bowel habits, Denies diarrhea, Denies nausea and Denies vomiting Genitourinary Genitourinary: Denies hematuria, Denies flank pain, Denies urinary incontinence and Denies urinary urgency Musculoskeletal Musculoskeletal: Denies back pain, Denies muscle weakness, Denies neck pain, Denies numbness and Denies tingling Integumentary/Breasts Skin/Breast: Denies pruritus, Denies erythema, Denies rash and Denies wounds Neurologic Neurologic: Denies behavioral changes, Denies confusion, Denies dizziness, Denies frequent falls, Denies loss of vision, Denies numbness, Denies tingling and Reports weakness Comments: Intermittent numbness of bilateral feet Psychiatric Psychiatric: Denies anxiety, Denies behavioral changes, Denies confusion, Denies depression, Denies homicidal ideation and Denies suicidal ideation Endocrine Endocrine: Denies fatigue, Denies flushing and Denies palpitations Hematologic/Lymphatic Hematologic/Lymphatic: Denies easy bruising Allergic/Immunologic Allergic/Immunologic: Denies urticaria, Denies throat swelling and Denies wheezing Patient History <Phylicia Ng PA-C - Last Filed: 04/24/21 18:03> Medical History Diabetes HTN (hypertension) Male circumcision Psoriasis Family History Mother Cancer Social History household members: spouse Smoking Status: Former smoker alcohol intake: former Smoking Status: Former smoker alcohol intake frequency: 0-2 drinks per day Substance Use Type: does not use Exam <Phylicia Ng PA-C - Last Filed: 04/24/21 18:03> Initial Vital Signs Initial Vital Signs: Vital Signs Temperature 98.2 F 04/24/21 10:56 Pulse Rate 77 04/24/21 10:56 Respiratory Rate 18 04/24/21 10:56 Blood Pressure 188/81 H 04/24/21 10:56 Pulse Oximetry 97 04/24/21 10:56 Const General: cooperative, healthy appearing and comfortable HENMT Head: normal to inspection Eyes General: appearance normal, both eyes and all related structures Neck Neck: normal visual inspection Chest Chest: normal inspection of the chest Resp Effort & Inspection: normal respiratory effort Auscultation: clear to auscultation bilaterally Cardio Rate: regular rate Rhythm: regular rhythm GI Inspection: normal to inspection Other: Abdomen is soft, nondistended, nontender to palpation. No CVA tenderness. General: No CVA tenderness Skin General: no rashes or lesions noted Neuro General: patient alert, patient awake and patient oriented x3 Extrem Other: No rashes or lesions noted on bilateral feet. Toenails appear overgrown and ungroomed. Psych Appearance: grossly normal <Mitzy Rock DO - Last Filed: 04/25/21 09:15> Initial Vital Signs Initial Vital Signs: Vital Signs Temperature 98.2 F 04/24/21 10:56 Pulse Rate 77 04/24/21 10:56 Respiratory Rate 18 04/24/21 10:56 Blood Pressure 188/81 H 04/24/21 10:56 Pulse Oximetry 97 04/24/21 10:56 Course <Phylicia Ng PA-C - Last Filed: 04/24/21 18:03> Orders Ordered: ED Orders 04/24/21 11:11 Basic Metabolic Panel Stat Complete Blood Count AUTO DIFF Stat Troponin I Stat 04/24/21 11:25 COVID19 - ADMIT (BI SPECIALIST swab/PCR) Stat COVID19 -Nasal swab/Pre-Proc Stat 04/24/21 12:00 Blood Culture Stat 04/24/21 12:01 XR chest 1V Stat 04/24/21 13:52 Consult to MONOTYPE MECHANIC - Flight Readiness Technician Stat 04/24/21 15:30 Urine Microscopic Stat 04/24/21 15:32 Consult to Physical Therapy Evaluate & Treat 04/24/21 15:52 EKG-12 Lead Routine Vital Signs Vital signs: Vital Signs - 8 hr 04/24/21 10:56 04/24/21 11:21 04/24/21 11:22 Temperature 98.2 F Pulse Rate 77 68 68 Respiratory Rate 18 7 L 13 Blood Pressure 188/81 H 199/83 H Pulse Oximetry 97 100 100 04/24/21 11:30 04/24/21 12:00 04/24/21 12:30 Temperature Pulse Rate 60 64 64 Respiratory Rate 14 22 16 Blood Pressure 188/77 H 206/83 H Pulse Oximetry 99 100 99 04/24/21 12:31 04/24/21 13:00 04/24/21 13:01 Temperature Pulse Rate 63 63 67 Respiratory Rate 15 15 16 Blood Pressure 183/66 H 215/79 H Pulse Oximetry 100 100 99 04/24/21 13:30 04/24/21 13:31 04/24/21 14:00 Temperature Pulse Rate 70 69 66 Respiratory Rate 17 18 23 Blood Pressure 201/88 H Pulse Oximetry 99 100 100 04/24/21 14:01 04/24/21 14:30 04/24/21 15:00 Temperature Pulse Rate 65 63 64 Respiratory Rate 25 H 26 H 17 Blood Pressure 178/72 H Pulse Oximetry 99 100 98 04/24/21 15:01 04/24/21 15:30 Temperature Pulse Rate 64 71 Respiratory Rate 17 18 Blood Pressure 188/78 H Pulse Oximetry 98 99 <Mitzy Rock, - Last Filed: 04/25/21 09:15> Orders Ordered: ED Orders 04/24/21 11:11 Basic Metabolic Panel Stat Complete Blood Count AUTO DIFF Stat Troponin I Stat 04/24/21 11:25 COVID19 - ADMIT (BI SPECIALIST swab/PCR) Stat COVID19 -Nasal swab/Pre-Proc Stat 04/24/21 12:00 Blood Culture Stat 04/24/21 12:01 XR chest 1V Stat 04/24/21 13:52 Consult to MONOTYPE MECHANIC - Flight Readiness Technician Stat 04/24/21 15:30 Urine Microscopic Stat 04/24/21 15:32 Consult to Physical Therapy Evaluate & Treat 04/24/21 15:52 EKG-12 Lead Routine Vital Signs Vital signs: Vital Signs - 8 hr 04/24/21 10:56 04/24/21 11:21 04/24/21 11:22 Temperature 98.2 F Pulse Rate 77 68 68 Respiratory Rate 18 7 L 13 Blood Pressure 188/81 H 199/83 H Pulse Oximetry 97 100 100 04/24/21 11:30 04/24/21 12:00 04/24/21 12:30 Temperature Pulse Rate 60 64 64 Respiratory Rate 14 22 16 Blood Pressure 188/77 H 206/83 H Pulse Oximetry 99 100 99 04/24/21 12:31 04/24/21 13:00 04/24/21 13:01 Temperature Pulse Rate 63 63 67 Respiratory Rate 15 15 16 Blood Pressure 183/66 H 215/79 H Pulse Oximetry 100 100 99 04/24/21 13:30 04/24/21 13:31 04/24/21 14:00 Temperature Pulse Rate 70 69 66 Respiratory Rate 17 18 23 Blood Pressure 201/88 H Pulse Oximetry 99 100 100 04/24/21 14:01 04/24/21 14:30 04/24/21 15:00 Temperature Pulse Rate 65 63 64 Respiratory Rate 25 H 26 H 17 Blood Pressure 178/72 H Pulse Oximetry 99 100 98 04/24/21 15:01 04/24/21 15:30 Temperature Pulse Rate 64 71 Respiratory Rate 17 18 Blood Pressure 188/78 H Pulse Oximetry 98 99 MDM - Weakness <Phylicia Ng PA-C - Last Filed: 04/24/21 18:03> Medical Records Attestation: I reviewed the patient's medical records. Lab Data Attestation: I reviewed the patient's lab results. Lab results narrative: Labs within normal limits Result diagrams: 04/24/21 11:11 04/24/21 11:11 Labs: Lab Results 04/24/21 04/24/21 04/24/21 Range/Units 11:11 11:11 11:25 WBC 6.7 (4.5-11.0) X10^3/uL RBC 3.18 L (4.5-5.9) X10^6/uL Hgb 9.5 L (13.5-17.5) g/dL Hct 27.8 L (41-53) % MCV 87.6 (80-100) fL MCH 30.0 (26-34) PG MCHC 34.3 (30-36) % RDW 13.7 (11.6-14.8) % Plt Count 352 (150-400) X10^3/uL Neut % (Auto) 66.5 (50-75) % Lymph % (Auto) 18.5 L (25-40) % Ray % (Auto) 11.4 (3-14) % Eos % (Auto) 3.0 (2-4) % Baso % (Auto) 0.6 (0-2) % Neut # (Auto) 4400 (7349-6182) /uL Lymph # (Auto) 1200 (1199-6816) /uL Ray # (Auto) 800 (0-900) /uL Eos # (Auto) 200 (0-450) /uL Baso # (Auto) 0 (0-100) /uL Sodium 139 (137-145) mmol/L Potassium 4.0 (3.4-5.1) mmol/L Chloride 106 (98-107) mmol/L Carbon Dioxide 30 (22-32) mmol/L BUN 32 H (9-20) mg/dL Creatinine 1.30 H (0.66-1.25) mg/dL Estimated GFR 52.6 L (>60) mL/min BUN/Creatinine Ratio 24.6 H (6-22) Glucose 126 H (80-110) mg/dL Calcium 8.9 (8.4-10.2) mg/dL Troponin I < 0.012 (0.01-0.034) ng/mL Urine RBC (0-5/HPF) Urine WBC (0-5/HPF) Urine Bacteria (None) Ur Culture Indicated? SARS-CoV-2 (PCR) Negative (Negative) 04/24/21 04/24/21 Range/Units 11:25 15:30 WBC (4.5-11.0) X10^3/uL RBC (4.5-5.9) X10^6/uL Hgb (13.5-17.5) g/dL Hct (41-53) % MCV (80-100) fL MCH (26-34) PG MCHC (30-36) % RDW (11.6-14.8) % Plt Count (150-400) X10^3/uL Neut % (Auto) (50-75) % Lymph % (Auto) (25-40) % Ray % (Auto) (3-14) % Eos % (Auto) (2-4) % Baso % (Auto) (0-2) % Neut # (Auto) (5511-9851) /uL Lymph # (Auto) (5072-1171) /uL Ray # (Auto) (0-900) /uL Eos # (Auto) (0-450) /uL Baso # (Auto) (0-100) /uL Sodium (137-145) mmol/L Potassium (3.4-5.1) mmol/L Chloride (98-107) mmol/L Carbon Dioxide (22-32) mmol/L BUN (9-20) mg/dL Creatinine (0.66-1.25) mg/dL Estimated GFR (>60) mL/min BUN/Creatinine Ratio (6-22) Glucose (80-110) mg/dL Calcium (8.4-10.2) mg/dL Troponin I (0.01-0.034) ng/mL Urine RBC 1-5/hpf (0-5/HPF) Urine WBC 0-1/hpf (0-5/HPF) Urine Bacteria None seen (None) Ur Culture Indicated? Cult not indicated SARS-CoV-2 (PCR) Negative (Negative) Urine Dip Bedside Urine Glucose Negative Bedside Urine Bilirubin - Negative Bedside Urine Ketone - Negative Urine Specific [place] 1.015 Bedside Urine Occult Blood - Negative Bedside Urine pH 6.5 Bedside Urine Protein ++ 100 Bedside Urine Urobilinogen - Negative Bedside Urine Nitrite - Negative Bedside Urine Leukocytes - Negative Esterase Imaging Data Chest x-ray: Radiologist Impression: PROCEDURE:? XR CHEST 1V ? INDICATIONS:? Dizziness ? TECHNIQUE:? One view of the chest was acquired.? ? COMPARISON:? [facility], , XR CHEST 1V, 12/19/2017, 12:53. ? FINDINGS:? ? Surgical changes and devices:? None.? ? Lungs and pleura:? Lungs are clear.? No pleural effusions or pneumothorax.? ? Mediastinum:? Mediastinal contours appear normal.? Heart size is normal.? ? Bones and chest wall:? No suspicious bony lesions.? Overlying soft tissues appear unremarkable.? ? IMPRESSION:? No acute cardiopulmonary disease process. ? ? Dictated by: Park Colindres MD, PhD on 04/24/2021 at 11:25 ? ? Approved by: Park Colindres MD, PhD on 04/24/2021 at 11:26 ? ECG Data Interpretation: Normal sinus rhythm, no ST-T changes, no axis deviation MDM Narrative Medical decision making narrative: 85-year-old male with past medical history diabetes presents to the ED with general weakness. In the absence of any acute symptoms other than weakness, will run labs, troponin, UA, chest x-ray, EKG, COVID-19 test to rule out ACS, UTI, COVID-19 infection. Will reassess. Workup was negative. Discharged patient with ED return precautions. <Mitzy Hudson Shweta, DO - Last Filed: 04/25/21 09:15> Lab Data Labs: Lab Results 04/24/21 04/24/21 04/24/21 Range/Units 11:11 11:11 11:25 WBC 6.7 (4.5-11.0) X10^3/uL RBC 3.18 L (4.5-5.9) X10^6/uL Hgb 9.5 L (13.5-17.5) g/dL Hct 27.8 L (41-53) % MCV 87.6 (80-100) fL MCH 30.0 (26-34) PG MCHC 34.3 (30-36) % RDW 13.7 (11.6-14.8) % Plt Count 352 (150-400) X10^3/uL Neut % (Auto) 66.5 (50-75) % Lymph % (Auto) 18.5 L (25-40) % Ray % (Auto) 11.4 (3-14) % Eos % (Auto) 3.0 (2-4) % Baso % (Auto) 0.6 (0-2) % Neut # (Auto) 4400 (4850-1618) /uL Lymph # (Auto) 1200 (1326-4416) /uL Ray # (Auto) 800 (0-900) /uL Eos # (Auto) 200 (0-450) /uL Baso # (Auto) 0 (0-100) /uL Sodium 139 (137-145) mmol/L Potassium 4.0 (3.4-5.1) mmol/L Chloride 106 (98-107) mmol/L Carbon Dioxide 30 (22-32) mmol/L BUN 32 H (9-20) mg/dL Creatinine 1.30 H (0.66-1.25) mg/dL Estimated GFR 52.6 L (>60) mL/min BUN/Creatinine Ratio 24.6 H (6-22) Glucose 126 H (80-110) mg/dL Calcium 8.9 (8.4-10.2) mg/dL Troponin I < 0.012 (0.01-0.034) ng/mL Urine RBC (0-5/HPF) Urine WBC (0-5/HPF) Urine Bacteria (None) Ur Culture Indicated? SARS-CoV-2 (PCR) Negative (Negative) 04/24/21 04/24/21 Range/Units 11:25 15:30 WBC (4.5-11.0) X10^3/uL RBC (4.5-5.9) X10^6/uL Hgb (13.5-17.5) g/dL Hct (41-53) % MCV (80-100) fL MCH (26-34) PG MCHC (30-36) % RDW (11.6-14.8) % Plt Count (150-400) X10^3/uL Neut % (Auto) (50-75) % Lymph % (Auto) (25-40) % Ray % (Auto) (3-14) % Eos % (Auto) (2-4) % Baso % (Auto) (0-2) % Neut # (Auto) (7924-1307) /uL Lymph # (Auto) (1883-8203) /uL Ray # (Auto) (0-900) /uL Eos # (Auto) (0-450) /uL Baso # (Auto) (0-100) /uL Sodium (137-145) mmol/L Potassium (3.4-5.1) mmol/L Chloride (98-107) mmol/L Carbon Dioxide (22-32) mmol/L BUN (9-20) mg/dL Creatinine (0.66-1.25) mg/dL Estimated GFR (>60) mL/min BUN/Creatinine Ratio (6-22) Glucose (80-110) mg/dL Calcium (8.4-10.2) mg/dL Troponin I (0.01-0.034) ng/mL Urine RBC 1-5/hpf (0-5/HPF) Urine WBC 0-1/hpf (0-5/HPF) Urine Bacteria None seen (None) Ur Culture Indicated? Cult not indicated SARS-CoV-2 (PCR) Negative (Negative) Urine Dip Bedside Urine Glucose Negative Bedside Urine Bilirubin - Negative Bedside Urine Ketone - Negative Urine Specific [place] 1.015 Bedside Urine Occult Blood - Negative Bedside Urine pH 6.5 Bedside Urine Protein ++ 100 Bedside Urine Urobilinogen - Negative Bedside Urine Nitrite - Negative Bedside Urine Leukocytes - Negative Esterase Discharge Plan Departure Patient Disposition: Home Clinical Impression: Weakness Instructions: DI for Fatigue Activity Restrictions/Additional Instructions: You were evaluated in the ED today for weakness. Your labs, EKG, chest x-ray were normal. Please establish care with a primary care provider for continued care. Return to the ED if you experience symptoms such as chest pain or shortness of breath. Prescriptions: No Action finasteride 5 mg Tablet 5 mg PO DAILY 0RF methotrexate sodium 2.5 mg Tablet 20 mg/m2 PO QWEEK 0RF lisinopril 10 mg Tablet 10 mg PO DAILY 0RF metformin 850 mg Tablet 850 mg PO BID 0RF glipizide 5 mg Tablet 10 mg PO 1-2XD 0RF tamsulosin 0.4 mg Capsule 0.4 mg PO DAILY 0RF Centrum Silver Men 1 tab PO DAILY 0RF cranberry 100 mg PO DAILY 0RF docusate sodium 200 mg DAILY 0RF levofloxacin 750 mg tablet 750 mg PO DAILY Qty: 5 0RF <Mitzy Rock, DO - Last Filed: 04/25/21 09:15> Cosign ED Attending Cosignature Attestation: I was immediately available in the department for consultation. Documentation has been reviewed.
[2021-04-24 16:00] LABS: RBC Urine 1-5/HPF (0-5/HPF); WBC Urine 0-1/HPF (0-5/HPF)
[2021-04-24 16:01] LABS: Bacteria Urine None Seen; Culture Indicated Urine Cult Not Indicated
--- NOTE | 2021-04-24 18:37 | CM.SWNOTE ---
Patient is 85yo M who was evaluated in ED for generalized weakness and dizziness when standing. Consult placed by treating PA for resources regarding caregiving, HH, & PCP establishment. POWDER PRESS OPERATOR met with patient and patient's daughter. Patient is able to [facility] to [facility]; he has not been able to find a provider [facility] that has openings for new patients. Patient reported his PCP retired; daughter indicated that is accurate but patient forgot so many appts that PCP office declined to schedule with him any longer. Resource guide provided to daughter to help with caregiving set up. Advised that patient will need PCP before he would qualify for HH opening (pt does not qualify for [facility]). Placement assistance agency brochure also provided per patient and patient's daughter's request. Patient and pt spouse own 2 homes and do not qualify for Medicaid or [facility] caregiving at this time due to too many financial resources they would need to spend down first. Patient discharging home with daughter providing transportation. Daughter will assist with PCP set up process. [facility] information also provided as patient reports he has been service connected with [facility] before. Bucky MUKHERJEE
== END 2021-04-24 18:00 | disposition home or self-care (01) ==
PROVIDERS: Emergency Medicine; Emergency Provider Student in an Organized Health Care Education/Training Program
DX: R42 Dizziness and giddiness (principal); Z20.822 Contact with and (suspected) exposure to COVID-19; R53.1 Weakness; R53.83 Other fatigue
CPT/HCPCS: 36415; 71045; 80048; 81003; 81015; 84484; 85025; 87040; 87635; 93005; 93010; 99283; C9803

== ENCOUNTER → 2021-10-13 16:07 | Outpatient (CLI) | payer MEDICARE, OTHER, SELFPAY ==
[2021-10-13 17:15] LABS: Add Manual Diff / Slide Review NO; Basophils Absolute Auto 100 /uL (0-100); Basophils Percent Auto 0.8 % (0-2); Eosinophils Absolute Auto 100 /uL (0-450); Eosinophils Percent Auto 1.8 % (2-4); Hematocrit 31.1 % (41-53); Hemoglobin 10.7 g/dL (13.5-17.5); Lymphocytes Absolute Auto 1400 /uL (1100-4500); Lymphocytes Percent Auto 20.9 % (25-40); Mean Corpuscular HGB Conc 34.3 % (30-36); Mean Corpuscular Volume 87.4 fL (80-100); Monocytes Absolute Auto 600 /uL (0-900); Monocytes Percent Auto 8.6 % (3-14); Neutrophils Absolute Auto 4500 /uL (1500-7000); Neutrophils Percent Auto 67.9 % (50-75); Platelet Count 309 X10^3/uL (150-400); Red Blood Cell Count 3.56 X10^6/uL (4.5-5.9); Red Cell Distribution Width 13.5 % (11.6-14.8); White Blood Cell Count 6.6 X10^3/uL (4.5-11.0)
[2021-10-13 17:29] LABS: HEMOLYSIS < 15 (0-50); Iron 87 ug/dL (49-181)
[2021-10-13 17:31] LABS: Alanine Aminotransferase 14 IU/L (<50); Albumin 4.3 g/dL (3.5-5.0); Albumin Globulin Ratio 1.3 (1.0-2.8); Alkaline Phosphatase 87 U/L (38-126); Aspartate Aminotransferase 21 IU/L (17-59); BUN Creatinine Ratio 17.2 (6-22); Bilirubin Total 0.5 mg/dL (0.2-1.3); Blood Urea Nitrogen 27 mg/dL (9-20); Calcium 8.5 mg/dL (8.4-10.2); Carbon Dioxide 26 mmol/L (22-32); Chloride 107 mmol/L (98-107); Estimated Glomerular Filt Rate 43 mL/min (>60); Globulin 3.4 g/dL (1.7-4.1); Glucose 123 mg/dL (80-110); HEMOLYSIS < 15 (0-50); Potassium 4.3 mmol/L (3.4-5.1); Sodium 140 mmol/L (137-145); Total Protein 7.7 g/dL (6.3-8.2)
[2021-10-13 17:32] LABS: Hemoglobin A1C% w Est Avg Glu 6.1 % (4.0-6.0)
[2021-10-13 17:42] LABS: Percent Iron Saturation 32 % (20-50); Total Iron Binding Capacity 268 ug/dL (261-462); Transferrin 208 mg/dL (206-381)
[2021-10-13 18:19] LABS: Vitamin B12 462 pg/mL (239-931)
[2021-10-23 12:26] LABS: Microalbumin Urine Random 9.3 mg/dL (0-1.6)
[2021-10-23 12:27] LABS: Creatinine Urine Random 50.1 mg/dL; Microalbumi Creatinin Ratio Ur 185.6 ug/mg CR (<30)
== END ==
PROVIDERS: PCP Internal Medicine; Referring Provider Internal Medicine; Visit Provider Internal Medicine
DX: D64.9 Anemia, unspecified (principal); E11.9 Type 2 diabetes mellitus without complications; I10 Essential (primary) hypertension; N18.31 Chronic kidney disease, stage 3a
CPT/HCPCS: 36415; 80053; 82043; 82570; 82607; 83036; 83540; 83550; 85025

== ENCOUNTER → 2022-03-15 11:48 | Outpatient (CLI) | payer MEDICARE, OTHER, SELFPAY ==
[2022-03-15 12:55] LABS: Hemoglobin A1C% w Est Avg Glu 6.1 % (4.0-6.0)
[2022-03-15 13:14] LABS: Alanine Aminotransferase 19 IU/L (<50); Albumin 4.3 g/dL (3.5-5.0); Albumin Globulin Ratio 1.2 (1.0-2.8); Alkaline Phosphatase 92 U/L (38-126); Aspartate Aminotransferase 26 IU/L (17-59); BUN Creatinine Ratio 19.6 (6-22); Bilirubin Total 0.5 mg/dL (0.2-1.3); Blood Urea Nitrogen 30 mg/dL (9-20); Calcium 8.7 mg/dL (8.4-10.2); Carbon Dioxide 27 mmol/L (22-32); Chloride 105 mmol/L (98-107); Cholesterol 160 mg/dL (140-199); Estimated Glomerular Filt Rate 44 mL/min (>60); Globulin 3.7 g/dL (1.7-4.1); Glucose 115 mg/dL (80-110); HDL Cholesterol 41 mg/dL (40-60); HEMOLYSIS < 15 (0-50); LDL Cholesterol Calculated 90 mg/dL (<100); Potassium 4.6 mmol/L (3.4-5.1); Sodium 144 mmol/L (137-145); Triglycerides 146 mg/dL (35-150)
== END ==
PROVIDERS: PCP Internal Medicine; Referring Provider Internal Medicine; Visit Provider Internal Medicine
DX: E11.9 Type 2 diabetes mellitus without complications (principal); I10 Essential (primary) hypertension; N18.31 Chronic kidney disease, stage 3a
CPT/HCPCS: 36415; 80053; 80061; 83036

== ENCOUNTER → 2022-07-30 13:00 | Outpatient (CLI) | payer MEDICARE, OTHER, SELFPAY ==
[2022-07-30 14:04] LABS: Alanine Aminotransferase 15 IU/L (<50); Albumin 4.4 g/dL (3.5-5.0); Albumin Globulin Ratio 1.3 (1.0-2.8); Alkaline Phosphatase 80 U/L (38-126); Aspartate Aminotransferase 19 IU/L (17-59); BUN Creatinine Ratio 16.9 (6-22); Bilirubin Total 0.3 mg/dL (0.2-1.3); Blood Urea Nitrogen 30 mg/dL (9-20); Calcium 8.7 mg/dL (8.4-10.2); Carbon Dioxide 24 mmol/L (22-32); Chloride 105 mmol/L (98-107); Estimated Glomerular Filt Rate 37 mL/min (>60); Globulin 3.5 g/dL (1.7-4.1); Glucose 97 mg/dL (80-110); HEMOLYSIS < 15 (0-50); Potassium 4.5 mmol/L (3.4-5.1); Sodium 140 mmol/L (137-145); Total Protein 7.9 g/dL (6.3-8.2)
[2022-07-31 06:06] LABS: Labcorp Hemoglobin (Hb) A1c 6.2 % (4.8-5.6)
== END ==
PROVIDERS: PCP Internal Medicine; Referring Provider Internal Medicine; Visit Provider Internal Medicine
DX: I10 Essential (primary) hypertension (principal); N18.31 Chronic kidney disease, stage 3a; E11.9 Type 2 diabetes mellitus without complications
CPT/HCPCS: 36415; 80053; 83036

== ENCOUNTER 2023-02-15 22:49 | Inpatient (IN) | payer MEDICARE, OTHER, SELFPAY ==
--- NOTE | 2023-02-15 22:51 | ED_ITS ---
HPI - General Adult General Chief complaint: Fever Stated complaint: fever Time Seen by Provider: 02/15/23 22:51 History of Present Illness HPI narrative: 87-year-old gentleman with a history of stroke in September of this year, depression, coronary artery disease, hypertension presents with a fever to 101.5 today. Started around 2:00 p.m. and this has been associated with increasing weakness overall chills and some nausea with 2 episodes of vomiting. Medics report that he was too weak to walk from his home to the medical unit. He notes that he has had a minor nonproductive cough over the last couple of days. The weakness was not noted until this evening. He is not been vomiting he is noticed no skin changes or concerns. No abdominal pain and no headaches. Related Data Home Medications Medication Instructions Recorded Confirmed aspirin 81 mg tablet,delayed 81 mg PO DAILY 10/08/22 11/12/22 release (Adult Low Dose Aspirin) Previous Rx's Medication Instructions Recorded Disabled Parking #1 ea 05/07/22 clopidogrel 75 mg tablet 75 mg PO DAILY #90 tabs 11/06/22 losartan 100 1 tab PO DAILY #90 tabs 11/06/22 mg-hydrochlorothiazide 12.5 mg tablet amlodipine 10 mg tablet 10 mg PO DAILY #90 tabs 11/12/22 citalopram 10 mg tablet 10 mg PO DAILY #90 tabs 11/12/22 Allergies Allergy/AdvReac Type Severity Reaction Status Date / Time No Known Drug Allergies Allergy Verified 11/12/22 13:47 Review of Systems Review of Systems Narrative: Pertinent positive and negative findings as per HPI Patient History Medical History Stroke (~09/2022) Mild cognitive impairment Chronic renal failure, stage 3a Anemia Essential hypertension Diabetes type 2, controlled Male circumcision Psoriasis Surgical History No pertinent past surgical history Family History Mother Cancer Social History household members: spouse Smoking Status: Former smoker alcohol intake: former Smoking Status: Former smoker alcohol intake frequency: 0-2 drinks per day Substance Use Type: does not use Exam Initial Vital Signs Initial Vital Signs: Vital Signs Pulse Rate 101 H 02/15/23 22:53 Blood Pressure 179/78 H 02/15/23 22:53 Pulse Oximetry 97 02/15/23 22:53 General: Older appearing in no acute distress. Able to give a complete and coherent history. Well-nourished well-developed HEENT: Moist mucous membranes, normal sclera with reactive pupils, Neck: No JVD, supple Respiratory: Lungs with rhonchi appreciated in the right mid axillary line, no crackles no wheezing. No reproducible chest or thoracic tenderness with palpation Cardiac: Regular rate and rhythm no murmurs no bruits Abdomen: Soft, nontender, good bowel tones, no flank pain Skin: Warm and dry, no rashes. No areas of concern for acute cellulitis Neurologic: Globally weak but otherwise Grossly neurologically intact with no obvious asymmetries or abnormalities Extremities: No trauma, well perfused Psych: Cooperative, appropriate insight and affect Course Orders Ordered: ED Orders 02/15/23 22:53 XR chest 1V Stat 02/15/23 23:00 Complete Blood Count AUTO DIFF Stat Comprehensive Metabolic Panel Stat Lactate (Lactic Acid) Stat Lipase Stat Magnesium Stat Respiratory Panel (Film Array) Stat Troponin I Stat 02/15/23 23:30 Blood Culture Stat 02/15/23 23:52 Urinalysis and Microscopic Stat Discontinued Medications Acetaminophen (Acetaminophen 325 Mg Tablet) 975 mg PO NOW ONE Stop: 02/15/23 22:55 Last Admin: 02/15/23 23:04 Dose: Not Given Documented By: BEN Sodium Chloride (Normal Saline 0.9%) 1,000 mls @ 1,000 mls/hr IV BOLUS ONE Stop: 02/15/23 23:51 Last Infusion: 02/16/23 00:03 Dose: Infused Documented By: Admin: 02/15/23 22:58 Dose: 1,000 mls/hr Documented By: BEN Ceftriaxone Sodium 2,000 mg/ (Sodium Chloride) 100 mls @ 200 mls/hr IV NOW ONE Stop: 02/15/23 23:49 Last Infusion: 02/16/23 00:45 Dose: Infused Documented By: Admin: 02/15/23 23:58 Dose: 200 mls/hr Documented By: BEN Azithromycin 500 mg/ Dextrose 250 mls @ 250 mls/hr IV NOW ONE Stop: 02/15/23 23:49 Last Admin: 02/15/23 23:58 Dose: 250 mls/hr Documented By: BEN Ondansetron HCl (Ondansetron 4 Mg/2 Ml Inj) 4 mg IV NOW ONE Stop: 02/15/23 22:53 Last Admin: 02/15/23 22:58 Dose: 4 mg Documented By: BEN Vital Signs Vital signs: Vital Signs - 8 hr 02/15/23 22:53 02/15/23 22:53 02/15/23 22:56 Temperature 101.6 F H Pulse Rate 101 H 103 H Respiratory Rate 16 Blood Pressure 179/78 H 179/78 H Pulse Oximetry 97 98 Oxygen Delivery Method Room Air 02/15/23 23:00 02/15/23 23:01 02/15/23 23:01 Temperature Pulse Rate 92 H 90 Respiratory Rate Blood Pressure 160/70 H Pulse Oximetry 95 97 Oxygen Delivery Method 02/15/23 23:30 02/15/23 23:30 02/16/23 00:00 Temperature Pulse Rate 87 Respiratory Rate Blood Pressure 154/67 H 139/61 Pulse Oximetry 97 Oxygen Delivery Method 02/16/23 00:00 Temperature Pulse Rate 83 Respiratory Rate Blood Pressure Pulse Oximetry 96 Oxygen Delivery Method Medical Decision Making Lab Data 02/15/23 23:00 02/15/23 23:00 Labs: Lab Results 02/15/23 02/15/23 Range/Units 23:00 23:52 WBC 20.6 H (4.5-11.0) X10^3/uL RBC 3.16 L (4.5-5.9) X10^6/uL Hgb 9.3 L (13.5-17.5) g/dL Hct 27.8 L (41-53) % MCV 87.9 (80-100) fL MCH 29.3 (26-34) PG MCHC 33.4 (30-36) % RDW 14.2 (11.6-14.8) % Plt Count 337 (150-400) X10^3/uL Neut % (Auto) 87.7 H (50-75) % Lymph % (Auto) 3.8 L (25-40) % [place] % (Auto) 6.8 (3-14) % Eos % (Auto) 0.3 L (2-4) % Baso % (Auto) 1.4 (0-2) % Neut # (Auto) 30443 H (0582-1974) /uL Lymph # (Auto) 800 L (9809-8907) /uL [place] # (Auto) 1400 H (0-900) /uL Eos # (Auto) 100 (0-450) /uL Baso # (Auto) 300 H (0-100) /uL Sodium 140 (137-145) mmol/L Potassium 5.1 (3.4-5.1) mmol/L Chloride 105 (98-107) mmol/L Carbon Dioxide 23 (22-32) mmol/L BUN 40 H (9-20) mg/dL Creatinine 1.87 H (0.66-1.25) mg/dL Estimated GFR 35 L (>60) mL/min BUN/Creatinine Ratio 21.4 (6-22) Glucose 141 H (80-110) mg/dL Lactate 1.3 (0.7-2.1) mmol/L Calcium 9.2 (8.4-10.2) mg/dL Magnesium 2.2 (1.6-2.3) mg/dL Total Bilirubin 0.5 (0.2-1.3) mg/dL AST 17 (17-59) IU/L ALT 14 (<50) IU/L Alkaline Phosphatase 84 (38-126) U/L Troponin I < 0.012 (0.01-0.034) ng/mL Total Protein 7.8 (6.3-8.2) g/dL Albumin 4.1 (3.5-5.0) g/dL Globulin 3.7 (1.7-4.1) g/dL Albumin/Globulin Ratio 1.1 (1.0-2.8) Lipase 190 (23-300) U/L Urine Color Yellow Urine Appearance Clear Urine pH 7.0 (4.5-8.0) Ur Specific [place] 1.010 (1.000-1.035) Urine Protein 1+ H (Negative) Urine Glucose (UA) Negative (Negative) g/dL Urine Ketones Negative (NEGATIVE) Urine Occult Blood Negative (Negative) Urine Nitrate Negative (Negative) Urine Bilirubin Negative (NEGATIVE) Urine Urobilinogen 0.2 (0.2) E.U./dL Ur Leukocyte Esterase Negative (NEGATIVE) Urine RBC 0-1/hpf (0-5/HPF) Urine WBC 0-1/hpf (0-5/HPF) Ur Squamous Epith Cells 0-1 /hpf (0-5/HPF) Urine Bacteria None seen (None) Hyaline Casts 0-1/lpf (None) Ur Culture Indicated? Cult not indicated Chlamy pneumoniae PCR Not detected (Not Detect) Adenovirus (PCR) Not detected (Not Detect) B.parapertussis DNA PCR Not detected (Not Detecte) Coronavirus OC43 (PCR) Not detected (Not Detect) Coronavirus HKU1 (PCR) Not detected (Not Detect) Coronavirus 229E (PCR) Not detected (Not Detect) SARS-CoV-2 (PCR) Not detected (Not Detecte) Coronavirus NL63 (PCR) Not detected (Not Detect) Human Metapneumovir PCR Not detected (Not Detect) Influenza Type A (PCR) Not detected (Not Detect) Influenza Type B (PCR) Not detected (Not Detect) M. pneumoniae (PCR) Not detected (Not Detect) Parainfluenza 1 (PCR) Not detected (Not Detect) Parainfluenza 2 (PCR) Not detected (Not Detect) Parainfluenza 3 (PCR) Not detected (Not Detect) Parainfluenza 4 (PCR) Not detected (Not Detect) RSV (PCR) Not detected (Not Detect) Entero/Rhino (PCR) Not detected (Not Detect) MDM Narrative Medical decision making narrative: CC: Fever and weakness since 2:00 a.m. this afternoon Complicating co-morbidities: Recent stroke, depression, hypertension Data collected from: patient, Medical records reviewed: Primary care notes reviewed, admission and discharge from 2018 is also reviewed Differential considered: Sepsis, bacterial infection, cellulitis, intra- abdominal abscess, viral syndrome Exam documented above, pertinent findings include: Globally weak but otherwise neurologically appropriate. Rhonchi in the right mid axillary line with slight cough nonproductive. Remainder of exam is unremarkable Lab Test results independently reviewed as above. Pertinent findings: CBC is notable for impressive leukocytosis at 20.6. Slight anemia at 9.3 and 27.8, significant left shift. No bands are noted Chemistries are notable for stable creatinine at 1.87. Remainder of chemistries are unremarkable Initial lactic is not elevated at 1.3. Lipase is within normal limits Respiratory panel is unremarkable Urine does not show a urinary tract infection Imaging studies independently reviewed: Chest x-ray shows slight abnormality in the right infrahilar region possibly an infiltrate along with chronic emphysematous changes Treatments: 1 L of fluid, he has not had any episodes of hypotension. He has been given 2 g of ceftriaxone and IV azithromycin Discussion: 87-year-old gentleman who suffered a midline frontal stroke in September of this year with no residual effects has had a slight cough over the last 2 days and this afternoon noted a fever as high as 101.5 with progressive weakness to the point that he was unable to get out of bed and 911 was called. On arrival in the emergency room he is globally weak but otherwise neurologically appropriate. He does have rhonchi in his right mid axillary line and a chest x-ray suggesting a developing right middle lobe to lower lobe pneumonia. White count is dramatically elevated at 20,000 thousand without bands but with a significant left shift. He is not requiring oxygen, he is not tachypneic and he is not hypotensive. Lactic acid level is not elevated he is not showing signs of sepsis. His curb 65 score is only 1 because of his age however given the fact that he is so weak he is unable to get up and physically walk out to his car I believe hospitalization for developing right-sided pneumonia in an 87-year-old gentleman is going to be most appropriate. His primary care provider is Dr. Thompson so will contact his on-call coverage for admission this evening. Spoke with Dr. Maurer who will accept the admission. Will do bridging orders with the admit going to Dr. Thompson. Patient is aware of need for admission, questions are answered and he is safe for transfer to the floor Discharge Plan Departure Patient Disposition: Admitted as Observation Clinical Impression: Pneumonia Qualifiers: Pneumonia type: due to unspecified organism Laterality: right Lung location: m iddle lobe of lung Qualified Code(s): J18.9 - Pneumonia, unspecified organism Prescriptions: No Action clopidogrel 75 mg tablet 75 mg PO DAILY Qty: 90 1RF losartan-hydrochlorothiazide 100-12.5 mg tablet 1 tab PO DAILY Qty: 90 1RF aspirin [Adult Low Dose Aspirin] 81 mg tablet,delayed release (DR/EC) 81 mg PO DAILY (DME) Disabled Parking See Rx Instructions .ROUTE .MEDSUPPLY Qty: 1 0RF Rx Instructions: Patient qualifies for disabled parking as per the attached form. amlodipine 10 mg tablet 10 mg PO DAILY Qty: 90 3RF citalopram 10 mg tablet 10 mg PO DAILY Qty: 90 3RF Referrals: Clement Thompson MD [Primary Care Provider] -
[2023-02-15 22:53] VITALS: BP 179/78; PULSE 101; O2SAT 97
--- NOTE | 2023-02-15 22:53 | DI.RAD.S_ITS ---
PROCEDURE: XR CHEST 1V INDICATIONS: fever TECHNIQUE: One view of the chest was acquired. COMPARISON: [facility], CR, XR CHEST 1V, 04/24/2021, 12:04. FINDINGS: Surgical changes and devices: None. Lungs and pleura: Subtle opacity in right infrahilar region is seen. Left lung is clear. Chronic emphysematous changes are seen. No pleural effusions or pneumothorax. Mediastinum: Mediastinal contours appear normal. Heart size is normal. Bones and chest wall: No suspicious bony lesions. Overlying soft tissues appear unremarkable. IMPRESSION: Finding is concerning for small right lower lobe infiltrate versus atelectasis. COPD. No pleural effusion or pneumothorax. Dictated by: Lorenzo Charles M.D. on 02/15/2023 at 23:30 Approved by: Lorenzo Charles M.D. on 02/15/2023 at 23:31
[2023-02-15 22:56] VITALS: BP 179/78; PULSE 103; RESP 16; TEMP 38.7; O2SAT 98; BMI 23.4
[2023-02-15] MEDS: SODIUM CHLORIDE 0.9% 1,000 ML 1000 ML IV (22:58)
[2023-02-15] MEDS: ONDANSETRON 4 MG/2 ML INJ IV (22:58)
[2023-02-15 23:00] VITALS: PULSE 92; O2SAT 95
[2023-02-15 23:01] VITALS: BP 160/70; PULSE 90; O2SAT 97
[2023-02-15 23:23] LABS: Add Manual Diff / Slide Review NO; Basophils Absolute Auto 300 /uL (0-100); Basophils Percent Auto 1.4 % (0-2); Eosinophils Absolute Auto 100 /uL (0-450); Eosinophils Percent Auto 0.3 % (2-4); Hematocrit 27.8 % (41-53); Hemoglobin 9.3 g/dL (13.5-17.5); Lymphocytes Absolute Auto 800 /uL (1100-4500); Lymphocytes Percent Auto 3.8 % (25-40); Mean Corpuscular HGB Conc 33.4 % (30-36); Mean Corpuscular Hemoglobin 29.3 PG (26-34); Mean Corpuscular Volume 87.9 fL (80-100); Monocytes Absolute Auto 1400 /uL (0-900); Monocytes Percent Auto 6.8 % (3-14); Neutrophils Absolute Auto 18100 /uL (1500-7000); Neutrophils Percent Auto 87.7 % (50-75); Platelet Count 337 X10^3/uL (150-400); Red Blood Cell Count 3.16 X10^6/uL (4.5-5.9); Red Cell Distribution Width 14.2 % (11.6-14.8); White Blood Cell Count 20.6 X10^3/uL (4.5-11.0)
[2023-02-15 23:27] LABS: Alanine Aminotransferase 14 IU/L (<50); Albumin 4.1 g/dL (3.5-5.0); Albumin Globulin Ratio 1.1 (1.0-2.8); Alkaline Phosphatase 84 U/L (38-126); Aspartate Aminotransferase 17 IU/L (17-59); BUN Creatinine Ratio 21.4 (6-22); Bilirubin Total 0.5 mg/dL (0.2-1.3); Blood Urea Nitrogen 40 mg/dL (9-20); Calcium 9.2 mg/dL (8.4-10.2); Carbon Dioxide 23 mmol/L (22-32); Chloride 105 mmol/L (98-107); Estimated Glomerular Filt Rate 35 mL/min (>60); Globulin 3.7 g/dL (1.7-4.1); Glucose 141 mg/dL (80-110); HEMOLYSIS < 15 (0-50); Potassium 5.1 mmol/L (3.4-5.1); Sodium 140 mmol/L (137-145); Total Protein 7.8 g/dL (6.3-8.2)
[2023-02-15 23:28] LABS: Lactate (Lactic Acid) 1.3 mmol/L (0.7-2.1); Lipase 190 U/L (23-300); Magnesium 2.2 mg/dL (1.6-2.3)
[2023-02-15 23:30] VITALS: BP 154/67; PULSE 87; O2SAT 97
[2023-02-15 23:39] LABS: Troponin I < 0.012 ng/mL (0.01-0.034)
[2023-02-15] MEDS: cefTRIAXone 2,000 MG in SODIUM CHLORIDE 0.9% 100 ML 200 MG IV (23:58)
[2023-02-15] MEDS: AZITHROMYCIN 500 MG in DEXTROSE 5% IN WATER 250 ML 250 MG IV (23:58)
[2023-02-16] VITALS (12 sets, daily range): BP systolic 114–157; BP diastolic 57–72; PULSE 56–85; RESP 15–23; TEMP 36.8–37.9; O2SAT 15–100; BMI 23.4
[2023-02-16 00:02] LABS: Appearance Urine UA CLEAR; Bilirubin Urine UA NEGATIVE (NEGATIVE); Color Urine UA YELLOW; Glucose Urine UA NEGATIVE (Negative); Ketones Urine UA NEGATIVE (NEGATIVE); Leukocyte Esterase Urine UA NEGATIVE (NEGATIVE); Nitrite Urine UA NEGATIVE (Negative); Occult Blood Urine UA NEGATIVE (Negative); Protein Urine UA 1+ (Negative); Urobilinogen Urine UA 0.2 E.U./dL (0.2)
[2023-02-16 00:03] LABS: Adenovirus Not Detected (Not Detect); B. parapertussis Not Detected (Not Detecte); Bordetella pertussis Not Detected (Not Detect); Chlamydophila pneumoniae Not Detected (Not Detect); Coronavirus 229E Not Detected (Not Detect); Coronavirus HKU1 Not Detected (Not Detect); Coronavirus NL 63 Not Detected (Not Detect); Coronavirus OC43 Not Detected (Not Detect); Human Metapneumovirus Not Detected (Not Detect); Human Rhinovirus/Enterovirus Not Detected (Not Detect); Influenza A Not Detected (Not Detect); Influenza B Not Detected (Not Detect); Mycoplasma pneumoniae Not Detected (Not Detect); Parainfluenza Virus 1 Not Detected (Not Detect); Parainfluenza Virus 2 Not Detected (Not Detect); Parainfluenza Virus 3 Not Detected (Not Detect); Parainfluenza Virus 4 Not Detected (Not Detect); Respiratory Syncytial Virus Not Detected (Not Detect); SARS- CoV-2 Not Detected (Not Detecte)
[2023-02-16 00:14] LABS: Bacteria Urine None Seen; RBC Urine 0-1/HPF (0-5/HPF); Squamous Epithelial Cell Urine 0-1 /HPF (0-5/HPF); WBC Urine 0-1/HPF (0-5/HPF)
[2023-02-16 00:15] LABS: Culture Indicated Urine Cult Not Indicated; Hyaline Casts Urine 0-1/LPF
[2023-02-16] MEDS: SODIUM CHLORIDE 0.9% 1,000 ML 125 ML IV ×2 (01:51→10:22)
--- NOTE | 2023-02-16 06:47 | PC.NURSE ---
pt was admitted this morning for pneumonia; his temp on admission was 100.2; he had taken tylenol prior to admission and blood cultures were drawn in the ED; subsequent temps were less than 99.7F; he has slept in between care
--- NOTE | 2023-02-16 10:25 | CM.DANOTE ---
Addendum entered by Bailey Hobbs R.N. 02/16/23 14:16: Dr. Maurer has ordered physical therapy for patient, he is on IV fluids. Mentioned home health, she is ok with this. Will have to see how patient does with therapy. Can then present this to patient, could discharge home tomorrow. Will continue to follow closely. Original Note: DCP: Case received, EMR reviewed and met with patient. Introduced self and role. Was able to obtain information regarding patient's baseline activity status prior to hospitalization, as well as his current living situation. DCP assessment completed with information currently available. Patient came to the hospital via ambulance secondary to increased weakness, chills, nausea, had 2 episodes of vomiting. Notes from medics indicate that he was too weak to walk from his home to the medical unit. Patient had indicated that he has had a minor nonproductive cough over the last couple of days. Patient had been noted to have a fever of 101.5. He has history of frontal CVA, which occurred last September. Patient was admitted for right-sided pneumonia. He is currently on room air. Met with patient in his room. He is alert. Confirmed that he resides in [place] alone. He indicated that his spouse a couple of years ago. He has a daughter, Alejandra Robledo, who lives a couple of miles away, according to patient. He indicated that he does not drive, his daughter takes him to all appointments, and has a walker and cane for home use. P: DCP to continue to follow. UR nurse indicated that patient may qualify for inpatient. Will see if Dr. Villasenor puts in P.T. notes to see if he is appropriate to return to home. Bailey Hobbs RN/Mold Repair Technician Discharge Planning/Care Management CM Discharge Assessment Start: 02/16/23 10:22 Freq: Status: Active Protocol: Document 02/16/23 10:22 (Rec: 02/16/23 10:25 [id number]) Discharge Planning Assessment Assigned Crime Data Specialist Bailey Hobbs RN/Mold Repair Technician Advance Directives? No History Provided By Patient,Medical Record Prior Living Arrangements House Comment 3 steps Household Members spouse Type of transporation used prior to Relies on Others admit Independent with ADL's Yes Is patient alert and oriented? Yes Caregiver for Another No DME Already Rented / Owned FWW / Walker,Cane Barriers to Discharge No Comment Lives alone, but daughter resides a couple of miles away Discharge Plan Home Transportation Arrangement Daughter Referrals Initiated Other Additional Comment Patient does not have any therapy orders, provider has not yet come in to see patient . Whiteboard Updated in Patient Room with Yes name and ext. # of Crime Data Specialist Review Status In Process Next Review Type Continued Stay Review
--- NOTE | 2023-02-16 13:19 | PM.HP.1 ---
History of Present Illness History of Present Illness Date Patient Seen: 02/16/23 Time Patient Seen: 13:20 Chief complaint: fever Narrative: This is a very pleasant 87-year-old gentleman who is under the primary care of Dr. Thompson. Presented to the emergency room with complaints of a febrile illness and cough that had been ongoing for 2 days and he was becoming progressively weak. Workup in the ER demonstrated a right middle lobe pneumonia and due to patient's profound weakness and concern for possible sepsis he was admitted to the hospital for further treatment. His curb score is 4 which qualifies him for inpatient admission. Patient was treated with azithromycin IV and ceftriaxone IV. Patient was found to be febrile with significant leukocytosis. He otherwise denies complaints of severe shortness of breath or dyspnea on exertion or chest pain or change in bowels or rashes. Past medical history: 1. CVA in September of 2022 and patient has been on Plavix and aspirin since then 2. Distant history of tobacco abuse, 20 pack year history. Quit over 20 years ago 3. Hypertension 4. Hyperlipidemia 5. Depression 6. Chronic renal failure, stage IIIA 7. Mild cognitive impairment 8. Spontaneous pneumothorax in 2012 requiring chest tube placement Past surgical history Unremarkable Health related behavior: Patient distant history of smoking. No alcohol or illicit drugs, fairly active Social history: Patient lives in [place] by himself. His 2 years ago. He is a daughter who is close Family history: Mom in her early 100s lung cancer Dad with COPD 12 point review of systems is otherwise negative No syncope, no chest pain, no neurologic symptoms PFSH Medical History Stroke (~09/2022) Mild cognitive impairment Chronic renal failure, stage 3a Anemia Essential hypertension Diabetes type 2, controlled Male circumcision Psoriasis Surgical History No pertinent past surgical history Family History Mother Cancer Social History household members: spouse Smoking Status: Former smoker alcohol intake: former Meds Home Medications and Allergies Home Medications Medication Instructions Recorded Confirmed Type Disabled Parking #1 ea 05/07/22 02/16/23 Rx aspirin 81 mg tablet,delayed 81 mg PO DAILY 10/08/22 02/16/23 History release (Adult Low Dose Aspirin) clopidogrel 75 mg tablet 75 mg PO DAILY #90 tabs 11/06/22 02/16/23 Rx losartan 100 1 tab PO DAILY #90 tabs 11/06/22 02/16/23 Rx mg-hydrochlorothiazide 12.5 mg tablet amlodipine 10 mg tablet 10 mg PO DAILY #90 tabs 11/12/22 02/16/23 Rx citalopram 10 mg tablet 10 mg PO DAILY #90 tabs 11/12/22 02/16/23 Rx Allergies Allergy/AdvReac Type Severity Reaction Status Date / Time No Known Drug Allergies Allergy Verified 11/12/22 13:47 Exam Vital Signs (past 8 hours): - 02/16/23 05:41 02/16/23 07:00 02/16/23 07:31 Temperature 99.0 F 98.3 F Pulse Rate 63 65 Respiratory Rate 15 23 Blood Pressure 141/63 H 123/61 Pulse Oximetry 15 L 100 Oxygen Delivery Method Room Air Oxygen Flow Rate 0 02/16/23 11:00 Temperature 99.0 F Pulse Rate 66 Respiratory Rate 16 Blood Pressure 119/58 L Pulse Oximetry 98 Oxygen Delivery Method Oxygen Flow Rate 0 Oxygen Delivery Method Room Air Oxygen Flow Rate 0 Narrative Exam Narrative: Patient is afebrile and stable on room air with stable vital signs. Blood pressure is 119 over 60s HEENT is unremarkable. Mucous membranes moist and pink Neck: Supple without adenopathy Chest: Rhonchi bilateral bases and right mid lung field. No clear wheezing. Cor: Distant S1-S2 regular rate and rhythm Abdomen: Positive bowel sounds, soft, nontender, nondistended, no hepatosplenomegaly Extremities: No edema, pulses intact Neurologic exam nonfocal Objective Labs 02/15/23 23:00 02/15/23 23:00 Labs: Laboratory Results - last 24 hr 02/15/23 02/15/23 23:00 23:52 WBC 20.6 H RBC 3.16 L Hgb 9.3 L Hct 27.8 L MCV 87.9 MCH 29.3 MCHC 33.4 RDW 14.2 Plt Count 337 Neut % (Auto) 87.7 H Lymph % (Auto) 3.8 L [place] % (Auto) 6.8 Eos % (Auto) 0.3 L Baso % (Auto) 1.4 Neut # (Auto) 68247 H Lymph # (Auto) 800 L [place] # (Auto) 1400 H Eos # (Auto) 100 Baso # (Auto) 300 H Sodium 140 Potassium 5.1 Chloride 105 Carbon Dioxide 23 BUN 40 H Creatinine 1.87 H Estimated GFR 35 L BUN/Creatinine Ratio 21.4 Glucose 141 H Lactate 1.3 Calcium 9.2 Magnesium 2.2 Total Bilirubin 0.5 AST 17 ALT 14 Alkaline Phosphatase 84 Troponin I < 0.012 Total Protein 7.8 Albumin 4.1 Globulin 3.7 Albumin/Globulin Ratio 1.1 Lipase 190 Urine Color Yellow Urine Appearance Clear Urine pH 7.0 Ur Specific [place] 1.010 Urine Protein 1+ H Urine Glucose (UA) Negative Urine Ketones Negative Urine Occult Blood Negative Urine Nitrate Negative Urine Bilirubin Negative Urine Urobilinogen 0.2 Ur Leukocyte Esterase Negative Urine RBC 0-1/hpf Urine WBC 0-1/hpf Ur Squamous Epith Cells 0-1 /hpf Urine Bacteria None seen Hyaline Casts 0-1/lpf Ur Culture Indicated? Cult not indicated Chlamy pneumoniae PCR Not detected Adenovirus (PCR) Not detected B.parapertussis DNA PCR Not detected Coronavirus OC43 (PCR) Not detected Coronavirus HKU1 (PCR) Not detected Coronavirus 229E (PCR) Not detected SARS-CoV-2 (PCR) Not detected Coronavirus NL63 (PCR) Not detected Human Metapneumovir PCR Not detected Influenza Type A (PCR) Not detected Influenza Type B (PCR) Not detected M. pneumoniae (PCR) Not detected Parainfluenza 1 (PCR) Not detected Parainfluenza 2 (PCR) Not detected Parainfluenza 3 (PCR) Not detected Parainfluenza 4 (PCR) Not detected RSV (PCR) Not detected Entero/Rhino (PCR) Not detected Assessment & Plan Assessment & Plan narrative: 87-year-old male with a past medical history of chronic kidney disease, stage III, CVA, hyperlipidemia, hypertension and depression who presents to the ER with a febrile illness leukocytosis, cough and chest x-ray findings suspicious for pneumonia. Viral testing was all negative. Patient is admitted to the hospital for the same. Assessment 1. Pneumonia, community-acquired without evidence of viral infection Plan: Will continue with ceftriaxone and azithromycin. Will continue to monitor blood testing rechecked tomorrow. Will consult respiratory therapy. Will provide oxygen as needed. Assessment 2. Hypertension with borderline blood pressures currently Plan: Will hold losartan/hydrochlorothiazide and amlodipine due to lower blood pressures. Will likely reinstate tomorrow. Will continue to monitor. Assessment 3. Possible history of type 2 diabetes but diet controlled Plan: Will monitor blood sugars Assessment 4. History of CVA Plan: Continue with Plavix and baby aspirin. Continue with risk reduction. Continue with blood pressure treatment. Assessment 5. Depression Plan: No current issues will follow. Continue on the same citalopram Code status is DNR 75 minutes was spent with patient in discussing with ER, nursing, patient, reviewing his chart and diagnostic workup formulating a plan and documentation.
--- NOTE | 2023-02-16 13:55 | PT.IIE ---
Surgical History (Last Reviewed 02/16/23 @ 01:10 by Tasha Dey MD) No pertinent past surgical history Medical History (Last Reviewed 02/16/23 @ 13:20 by Ananya Maurer MD) Anemia Chronic renal failure, stage 3a Diabetes type 2, controlled Essential hypertension Male circumcision Mild cognitive impairment Psoriasis Stroke (~09/2022) Physical Therapy Inpatient Evaluation/Re-Eval M1 PT/OT-IP Prior Functional Status Start: 02/16/23 15:44 Freq: NEEDED Status: Active Protocol: Document 02/16/23 13:55 AB (Rec: 02/16/23 16:01 AB [id number]) Medical Review Prior Functional Status Medical History Reviewed Yes Communication able to make needs known; with confusion Mobility and Gait pt stated that was modified independent with all mmobilities and ambulation using a standard walker and occasionally uses a SPC; pt initially stated that he lives by himself but daughter in room stated that pt lives with him Prior Functional Level (Other details) pt stated that he had PT before when he had CVA in 2018 Social History Household Members children Living Arrangements House Number of Floors (Floors) One Floor Number of Stairs To Enter/Railing? 5 steps B rails to enter the house Home Environment Standard Height Toilet,Tub/ Shower Home Equipment Straight Cane,Shower Seat with Backrest,Hand Held Shower, Hospital Bed,Grab Bars Near Toilet,Grab Bars In Shower Additional Social History Comment pt has his daughter at home to assist him pt has a standard walker M2 PT-IP Current Condition Start: 02/16/23 15:44 Freq: NEEDED Status: Active Protocol: Document 02/16/23 13:55 AB (Rec: 02/16/23 16:01 AB [id number]) Physical Therapy Current Condition Current Condition Evaluation Date 02/16/23 Treatment Diagnosis PNA; difficulty in walking Onset Date 02/16/23 M3 PT-IP Subjective Start: 02/16/23 15:44 Freq: NEEDED Status: Active Protocol: Document 02/16/23 13:55 AB (Rec: 02/16/23 16:01 AB [id number]) Subjective Physical Therapy Visit Type Type Initial Evaluation Visit Start Time 13:55 Visit Stop Time 14:45 Total Visit Minutes 50 Number of DEPARTMENT SALES MANAGER Visits 0 Physical Therapy Visit Comments Patient Comments agreeable to do PT Therapy Pain Assessment Pain Present Pain Present Denied Pain M4 PT-IP Mobility and Gait Start: 02/16/23 15:44 Freq: NEEDED Status: Active Protocol: Document 02/16/23 13:55 AB (Rec: 02/16/23 16:01 AB [id number]) PT-Bed Mobility Assessment Supine to Sit Supine to Sit Standby Assistance PT-Transfer Assessment Sit to and From Stand Sit to and from Stand Contact Guard Assistance,1 Person Assistance,Use of Upper Extremities Equipment Transfer Assistive Device Gait Belt,Front Wheeled Walker Orthotic/Prosthetic Devices or Brace: No Transfers Transfer Destination Chair Transfer Technique ambulated Transfer Ability Level of Assist Contact Guard Assistance,1 Person Assistance,Use of Upper Extremities Comments Mobility Comments BP: 129/64. pt completed supine to sit SBA. able to sit on EOB SBA. completed sit to stand CGA and ambulated to the chair using FWW CGA. presents wtih stooped posture and lateral trunk lean to the L, and tends to move FWW too far forward. pt sat on the chair. educated pt on safety, midline posture and alignment and use of FWW for support. pt agreed to do stairs. completed sit to stand from the chair x 3 attempts CGA and cues. ambulated in the hallway ~ 50 ft using FWW CGA. presents with unsteady gait but without LOB but requires CGA for safety. assisted pt to the stairs. pt completed up/down steps using bilateral rails CGA. pt completed descent on the chair backwards and stated that, it is what he does at home. assisted pt back to his room. ambulated from the w/c to the chair ~ 20 ft CGA. positioned pt on the chair. call light and table placed within reach. daughter and pt wants a FWW dispensed to them through the hospital. informed regarding going through [facility] and pt agreed. informed nurse to obtain doctor's order for DME. Gait Assessment Gait Gait Assistance Required: Contact Guard Assist Distance (Feet) 50 Able to Maintain Weight Bearing Status Yes During Gait Assistive Devices Assistive Device Gait Belt,Front Wheeled Walker Orthotic/Prosthetic Devices or Brace: No Gait Deviations General Gait Pattern Antalgic,Decreased Stride Length,Decreased Feet Clearance,Flexed Trunk,Lateral Trunk Lean,Step-to Gait Factors Limiting Gait Function Factors Limiting Gait Function Decreased Activity Tolerance, Decreased Strength,Difficulty Following Directions,Limited Range of Motion,Poor Balance, Poor Safety Awareness Stair Climbing Assessment Evaluation Level of Assist On Stairs Contact Guard Assistance Devices Stair Climbing Assistive Devices Left Railing,Right Railing Technique/Endurance Stair Climbing Direction Ascend and Descend Stair Climbing Technique Step Over Step Number of Steps Climbed 3 Query Text: Stair Climbing Set # Repetitions (reps) 2 PT-Balance Assessment Sitting Balance and Reactions Static Sitting Balance Ability Good Dynamic Sitting Balance Ability Good Standing Balance and Reactions Static Standing Balance Ability Fair Dynamic Standing Balance Ability Fair Device Used FWW M5 PT-IP Objective Assessments Start: 02/16/23 15:44 Freq: NEEDED Status: Active Protocol: Document 02/16/23 13:55 AB (Rec: 02/16/23 16:01 AB [id number]) Orientation Orientation/Cognition Level of Alertness Alert Orientation Name,Place,Situation Safety Awareness Decreased Safety Awareness Memory Description Short Term Impaired,Vault Custodian Impaired Gross Range of Motion Lower Extremity ROM Assessment Within Functional Limits Strength Lower Extremity Strength Assessment Within Functional Limits Muscle Tone Muscle Tone WNL Yes M6 PT-IP Treatment Start: 02/16/23 15:44 Freq: NEEDED Status: Active Protocol: Document 02/16/23 13:55 AB (Rec: 02/16/23 16:01 AB [id number]) Physical Therapy Treatment Education Education Provided Safety M7 PT-IP Assessment and Plan Start: 02/16/23 15:44 Freq: NEEDED Status: Active Protocol: Document 02/16/23 13:55 AB (Rec: 02/16/23 16:01 AB [id number]) PT Summary Assessment and Plan Potential Rehabilitation Potential Good Status of Condition at Evaluation Stable Summary Impairments Pain,ROM,Strength,Balance, Coordination,Sensation,Tone, Cognition,Bed Mobility, Transfers,Gait,Activity Tolerance Assessment Summary pt is an 87 y/o M who presented to the ED for weakness, nausea and vomiting. pt admitted for PNA. pt requiring CGA with mobility using FWW. pt lives with his daughter who will be able to assist pt at home. Pt requested FWW to be dispensed to him from the hospital and will provide one upon d/c. will continue to assess pt's progress and if needed, caregiver training will be conducted. Goals Bed Mobility Goal Independent Transfer Goal Independent,Front Wheeled Walker Gait Goal Independent,Front Wheel Walker Gait Distance 150 Other Goals up/down 5 steps B rail mod I Days to Meet Goals 10 Frequency of Treatment Frequency Of Treatment Once a Day Treatment Plan Physical Therapy Treatment Plan Bed Mobility Training,Transfer Training,Gait Training, Therapeutic Exercise,Balance Retraining,Discharge Planning, Hot or Cold Pack,Neuromuscular Re-ed,Coordination Retraining Precautions Other Precautions falls Recommendations To Nursing Amount of Assist Needed 1 Person Assist Discharge Recommendations PT Discharge Recommendations Home with Assistance,Home Health Equipment Needed for Home Before FWW Discharge Transportation Needs at Discharge Private Vehicle
[2023-02-16] MEDS: HYDROCODONE/ACET 5/325 TABLET 1 TAB PO (13:56)
[2023-02-16] MEDS: AZITHROMYCIN 500 MG in DEXTROSE 5% IN WATER 250 ML 250 MG IV (13:57)
[2023-02-16] MEDS: cefTRIAXone 2,000 MG in SODIUM CHLORIDE 0.9% 100 ML 200 MG IV (13:57)
[2023-02-16] MEDS: CITALOPRAM 10 MG TABLET PO (13:57)
[2023-02-16] MEDS: CLOPIDOGREL 75 MG TABLET PO (13:57)
[2023-02-17] MEDS: SODIUM CHLORIDE 0.9% 1,000 ML 60 ML IV (00:39)
[2023-02-17 04:47] VITALS: BP 173/78; PULSE 61; RESP 18; TEMP 37.1; O2SAT 98
[2023-02-17 05:08] LABS: Add Manual Diff / Slide Review NO; Basophils Absolute Auto 100 /uL (0-100); Basophils Percent Auto 0.6 % (0-2); Eosinophils Absolute Auto 400 /uL (0-450); Eosinophils Percent Auto 3.6 % (2-4); Hematocrit 22.8 % (41-53); Hemoglobin 7.8 g/dL (13.5-17.5); Lymphocytes Absolute Auto 1900 /uL (1100-4500); Lymphocytes Percent Auto 18.1 % (25-40); Mean Corpuscular HGB Conc 34.3 % (30-36); Mean Corpuscular Hemoglobin 29.9 PG (26-34); Mean Corpuscular Volume 87.4 fL (80-100); Monocytes Absolute Auto 1000 /uL (0-900); Monocytes Percent Auto 9.3 % (3-14); Neutrophils Absolute Auto 7200 /uL (1500-7000); Neutrophils Percent Auto 68.4 % (50-75); Platelet Count 264 X10^3/uL (150-400); Red Blood Cell Count 2.61 X10^6/uL (4.5-5.9); Red Cell Distribution Width 14.3 % (11.6-14.8); White Blood Cell Count 10.5 X10^3/uL (4.5-11.0)
[2023-02-17 05:21] LABS: BUN Creatinine Ratio 20.6 (6-22); Blood Urea Nitrogen 33 mg/dL (9-20); Calcium 8.7 mg/dL (8.4-10.2); Carbon Dioxide 23 mmol/L (22-32); Chloride 109 mmol/L (98-107); Estimated Glomerular Filt Rate 42 mL/min (>60); Glucose 106 mg/dL (80-110); HEMOLYSIS < 15 (0-50); Potassium 4.4 mmol/L (3.4-5.1); Sodium 138 mmol/L (137-145)
--- NOTE | 2023-02-17 06:42 | PC.NURSE ---
pt has had an uneventful shift and has slept the majority of the night; he had some mild confusion upon waking to use the urinal but was easily reoriented
[2023-02-17 07:52] VITALS: BP 152/66; PULSE 64; RESP 18; TEMP 36.8; O2SAT 98
[2023-02-17] MEDS: CLOPIDOGREL 75 MG TABLET PO (09:11)
[2023-02-17] MEDS: ASPIRIN EC 81 MG TABLET PO (09:11)
[2023-02-17] MEDS: CITALOPRAM 10 MG TABLET PO (09:11)
--- NOTE | 2023-02-17 10:55 | PT.IPTN ---
Addendum entered and electronically signed by Jannet Recinos, WASHER ENGINEER HELPER 02/17/23 13:26: Dispensed FWW for home use. Original Note: Physical Therapy Treatment Note M2 PT-IP Current Condition Start: 02/16/23 15:44 Freq: NEEDED Status: Active Protocol: Document 02/16/23 13:55 AB (Rec: 02/16/23 16:01 AB [email or web address]) Physical Therapy Current Condition Current Condition Evaluation Date 02/16/23 Treatment Diagnosis PNA; difficulty in walking Onset Date 02/16/23 M3 PT-IP Subjective Start: 02/16/23 15:44 Freq: NEEDED Status: Active Protocol: Document 02/17/23 10:35 KS (Rec: 02/17/23 11:34 KS [id number]) Subjective Physical Therapy Visit Type Type Treatment Note Visit Start Time 10:35 Visit Stop Time 10:55 Total Visit Minutes 20 Number of WASHER ENGINEER HELPER Visits 1 Physical Therapy Visit Comments Patient Comments agreeable to do PT, daughter present M4 PT-IP Mobility and Gait Start: 02/16/23 15:44 Freq: NEEDED Status: Active Protocol: Document 02/17/23 10:35 KS (Rec: 02/17/23 11:34 KS [id number]) PT-Bed Mobility Assessment Supine to Sit Supine to Sit Standby Assistance Scooting Scooting to Edge of Bed Standby Assistance PT-Transfer Assessment Sit to and From Stand Sit to and from Stand Contact Guard Assistance,1 Person Assistance,Use of Upper Extremities Equipment Transfer Assistive Device Gait Belt,Front Wheeled Walker Orthotic/Prosthetic Devices or Brace: No Transfers Transfer Destination Chair Transfer Technique ambulated w/ FWW Transfer Ability Level of Assist Contact Guard Assistance,1 Person Assistance,Use of Upper Extremities Comments Mobility Comments Pt in bed upon arrival, daughter in room. SBA for sup< >sit, CGA for sit<>stand w/ FWW. Pt tremulous upon standing, BP 180s/70s. Pt sad back down, BP dec to 160s/70. Checked w/ RN, pts BP meds on hold, okay to proceed. Pt ambulated ~30 ft in room w/ FWW CGA before requesting to sit in the chair. Reveiwed LE exercises to promote blood flow and strengthening including ankle pumps, quad sets, glute sets, and seated marching. Pt left in chair w/ all needs in reach. Gait Assessment Gait Gait Assistance Required: Contact Guard Assist Distance (Feet) 30 Able to Maintain Weight Bearing Status Yes During Gait Assistive Devices Assistive Device Gait Belt,Front Wheeled Walker Orthotic/Prosthetic Devices or Brace: No Gait Deviations General Gait Pattern Antalgic,Decreased Stride Length,Decreased Feet Clearance,Flexed Trunk,Lateral Trunk Lean,Step-to Gait Factors Limiting Gait Function Factors Limiting Gait Function Decreased Activity Tolerance, Decreased Strength,Difficulty Following Directions,Limited Range of Motion,Poor Balance, Poor Safety Awareness Comments Gait Comments Flexed posture, minimal ground clearance Stair Climbing Assessment Comments Stair Climbing Comments Did not assess d/t high BP and fatigue. PT-Balance Assessment Sitting Balance and Reactions Static Sitting Balance Ability Good Dynamic Sitting Balance Ability Good Standing Balance and Reactions Static Standing Balance Ability Fair Dynamic Standing Balance Ability Fair Device Used FWW M5 PT-IP Objective Assessments Start: 02/16/23 15:44 Freq: NEEDED Status: Active Protocol: Document 02/16/23 13:55 AB (Rec: 02/16/23 16:01 AB [id number]) Orientation Orientation/Cognition Level of Alertness Alert Orientation Name,Place,Situation Safety Awareness Decreased Safety Awareness Memory Description Short Term Impaired,Skilled Nursing Impaired Gross Range of Motion Lower Extremity ROM Assessment Within Functional Limits Strength Lower Extremity Strength Assessment Within Functional Limits Muscle Tone Muscle Tone WNL Yes M6 PT-IP Treatment Start: 02/16/23 15:44 Freq: NEEDED Status: Active Protocol: Document 02/17/23 10:35 KS (Rec: 02/17/23 11:34 KS [id number]) Physical Therapy Treatment Exercises Exercises Ankle Pumps,Gluteal Sets,Quad Sets,Heel Slides Education Education Provided Safety Equipment Issued Equipment Type and Company Seated marching M7 PT-IP Assessment and Plan Start: 02/16/23 15:44 Freq: NEEDED Status: Active Protocol: Document 02/17/23 10:35 KS (Rec: 02/17/23 11:34 KS [id number]) PT Summary Assessment and Plan Potential Rehabilitation Potential Good Summary Impairments Pain,ROM,Strength,Balance, Coordination,Sensation,Tone, Cognition,Bed Mobility, Transfers,Gait,Activity Tolerance Progress Towards Goals Slow Progress due to Medical Issues,Slow Progress due to Activity Tolerance Assessment Summary Pt continues to require SBA to CGA for mobility w/ FWW. Limited by low tolerance for activity and weakness. Presents w/ lower H&H and high BP this AM, however RN clears to procedd w/ PT. Pts daughter will be living w/ pt and providing assistance as needed. d/c orders not entered , however pt will need FWW at d/c. will continue to assess pt's progress and if needed, caregiver training will be conducted. Goals Bed Mobility Goal Independent Transfer Goal Independent,Front Wheeled Walker Gait Goal Independent,Front Wheel Walker Gait Distance 150 Other Goals up/down 5 steps B rail mod I Days to Meet Goals 10 Frequency of Treatment Frequency Of Treatment Once a Day Treatment Plan Physical Therapy Treatment Plan Bed Mobility Training,Transfer Training,Gait Training, Therapeutic Exercise,Balance Retraining,Discharge Planning, Hot or Cold Pack,Neuromuscular Re-ed,Coordination Retraining Precautions Other Precautions falls Recommendations To Nursing Amount of Assist Needed 1 Person Assist Discharge Recommendations PT Discharge Recommendations Home with Assistance,Home Health Equipment Needed for Home Before FWW Discharge Transportation Needs at Discharge Private Vehicle
[2023-02-17 11:12] VITALS: BP 154/72; PULSE 69; RESP 16; TEMP 37; O2SAT 96
--- NOTE | 2023-02-17 11:32 | CM.DPC ---
Addendum entered by Bailey Hobbs R.N. 02/17/23 13:37: Patient is discharging home today, was able to get in contact with Suzette Sepulveda, from [facility], since she called, and let her know that patient is discharging home today, sent DC Summary. Addendum entered by Bailey Hobbs R.N. 02/17/23 12:19: Alfreda from [facility] called back about referral, stated can accept. Original Note: DCP Cont: Patient worked with P.T. recommending home health services. Met with patient and daughter, Alejandra, confirmed that she does reside with patient. Patient indicated that he has had [facility] before, and was pleased with them. Went ahead and ordered [facility] for RN, P.T, and O.T. Spoke to their answering service to have intake call back, and left a message with Suzette Sepulveda, [facility] loss mitigation specialist. Sent over face sheet, face to face, orders, H&P, and P.T. notes. It is unclear if patient will discharge today, had decreased H&H. P: DCP to continue to follow. Plan is home with [facility] [employer] [facility], have sent referral and left messages, will just need DC Summary upon discharge. Bailey Hobbs RN/Bench Technician
--- NOTE | 2023-02-17 12:13 | P.DS_ITS ---
History of Present Illness History of Present Illness Date Patient Seen: 02/17/23 Time Patient Seen: 12:14 Chief complaint: fever Narrative: This is a very pleasant 87-year-old gentleman who is under the primary care of Dr. Thompson. Presented to the emergency room with complaints of a febrile illness and cough that had been ongoing for 2 days and he was becoming progressively weak. Workup in the ER demonstrated a right middle lobe pneumonia and due to patient's profound weakness and concern for possible sepsis he was admitted to the hospital for further treatment. His curb score is 4 which qualifies him for inpatient admission. Patient was treated with azithromycin IV and ceftriaxone IV. Patient was found to be febrile with significant leukocytosis. He otherwise denies complaints of severe shortness of breath or dyspnea on exertion or chest pain or change in bowels or rashes. Past medical history: 1. CVA in September of 2022 and patient has been on Plavix and aspirin since then 2. Distant history of tobacco abuse, 20 pack year history. Quit over 20 years ago 3. Hypertension 4. Hyperlipidemia 5. Depression 6. Chronic renal failure, stage IIIA 7. Mild cognitive impairment 8. Spontaneous pneumothorax in 2012 requiring chest tube placement Past surgical history Unremarkable Health related behavior: Patient distant history of smoking. No alcohol or illicit drugs, fairly active Social history: Patient lives in [place] by himself. His 2 years ago. He is a daughter who is close Family history: Mom in her early 100s lung cancer Dad with COPD 12 point review of systems is otherwise negative No syncope, no chest pain, no neurologic symptoms Discharge Providers Provider Date of admission: 02/16/23 01:22 Discharge Date: 02/17/23 Primary care physician: Clement Thompson MD Consults: 02/16/23 13:15 Consult to Physical Therapy Evaluate & Treat Comment: Physician Instructions: Evaluate and Treat 02/17/23 11:19 Consult to Home Health Routine Comment: Reason For Exam: Home Health RN, P.T, O.T. Discharge provider: Ananya Maurer MD Summary Hospital Course Discharge Diagnosis: 1. Community-acquired anemia with leukocytosis improved with ceftriaxone and azithromycin 2. Acute on chronic kidney disease improved with IV hydration 3. Chronic anemia worsened related to IV fluids, patient got a total of about 4 L over the course of 36 hours. 4. Hypertension initially blood pressures were low normal on admit and then improved by hospital day 2. Will discharge home on amlodipine 10 and losartan 100 mg and will stop the hydrochlorothiazide 12.5 mg 5. Depression stable 6. History of CVA on Plavix and aspirin. Stable no symptoms Hospital Course: Patient was diagnosed with community-acquired pneumonia he would afebrile illness with leukocytosis and findings on chest x-ray. He was given ceftriaxone and azithromycin in the ER and preliminary blood culture is negative. He was admitted to the hospital and never did require any oxygen therapy. He was given IV fluids and had marked improvement in his condition. He was seen by Physical therapy and recommended that he use a walker. He was discharged home in stable condition on hospital day 2. Status at Discharge Cognitive/behavioral status at discharge: at baseline, oriented Functional status at discharge: uses cane/walker Overall status at discharge: patient is progressing back to baseline Exam Vital Signs (past 8 hours): - 02/17/23 04:47 02/17/23 07:00 02/17/23 07:52 Temperature 98.8 F 98.3 F Pulse Rate 61 64 Respiratory Rate 18 18 Blood Pressure 173/78 H 152/66 H Pulse Oximetry 98 98 Oxygen Delivery Method Room Air Oxygen Flow Rate 0 02/17/23 11:12 Temperature 98.6 F Pulse Rate 69 Respiratory Rate 16 Blood Pressure 154/72 H Pulse Oximetry 96 Oxygen Delivery Method Oxygen Flow Rate 0 Oxygen Delivery Method Room Air Oxygen Flow Rate 0 Narrative Exam Narrative: Patient is afebrile vital signs are stable except for blood pressure is elevated. Patient's blood pressure medications were held. Patient is stable on room air with O2 sats 98% Patient is alert and oriented x3 HEENT is unremarkable other than poor fitting dentures Neck: Supple Chest: Clear to auscultation without wheezes rhonchi or crackles decreased breath sounds bibasilar but no crackles Cor: Regular rate and rhythm with distant S1-S2 Abdomen: Positive bowel sounds Extremities unremarkable Neurologic exam nonfocal Objective Labs 02/17/23 04:10 02/17/23 04:10 Labs: Laboratory Results - last 24 hr 02/17/23 04:10 WBC 10.5 RBC 2.61 L Hgb 7.8 L Hct 22.8 L MCV 87.4 MCH 29.9 MCHC 34.3 RDW 14.3 Plt Count 264 Neut % (Auto) 68.4 Lymph % (Auto) 18.1 L Gillespie % (Auto) 9.3 Eos % (Auto) 3.6 Baso % (Auto) 0.6 Neut # (Auto) 7200 H Lymph # (Auto) 1900 Gillespie # (Auto) 1000 H Eos # (Auto) 400 Baso # (Auto) 100 Sodium 138 Potassium 4.4 Chloride 109 H Carbon Dioxide 23 BUN 33 H Creatinine 1.60 H Estimated GFR 42 L BUN/Creatinine Ratio 20.6 Glucose 106 Calcium 8.7 PFSH Medical History Stroke (~09/2022) Mild cognitive impairment Chronic renal failure, stage 3a Anemia Essential hypertension Diabetes type 2, controlled Male circumcision Psoriasis Surgical History No pertinent past surgical history Family History Mother Cancer Social History household members: children Smoking Status: Former smoker alcohol intake: former Discharge Assessment & Plan Assessment and Plan Assessment: 1. Community-acquired anemia with leukocytosis improved with ceftriaxone and azithromycin 2. Acute on chronic kidney disease improved with IV hydration 3. Chronic anemia worsened related to IV fluids, patient got a total of about 4 L over the course of 36 hours. 4. Hypertension initially blood pressures were low normal on admit and then improved by hospital day 2. Will discharge home on amlodipine 10 and losartan 100 mg and will stop the hydrochlorothiazide 12.5 mg 5. Depression stable 6. History of CVA on Plavix and aspirin. Stable no symptoms Plan of Treatment: DC home today. Follow up with Dr. Thompson in 1-2 weeks with CBC and BNP. Patient is discharged home on azithromycin 250 mg daily for 2 days. This will be a total of 5 days of azithromycin. Patient is discharged home on Augmentin 875 mg twice daily for 7 days. These are both to be started tomorrow. We reviewed the side effects. Patient received ceftriaxone x3 doses and azithromycin 500 mg IV x3 doses while he was in the hospital. He will be discharged on his same other medications including citalopram baby aspirin, Plavix, amlodipine and losartan 100 mg. I am stopping his hydrochlorothiazide 12.5 mg daily. He will be discharged home with the front wheel walker to use. Iron studies are pending at the time of discharge due to his anemia. Discharge Plan Discharge Plan Patient Disposition: Home Discharge orders & Medications Prescriptions: New losartan 100 mg tablet 100 mg PO DAILY Qty: 90 0RF amoxicillin-pot clavulanate 875-125 mg tablet 1 tab PO BID Qty: 14 0RF azithromycin 250 mg tablet 250 mg PO DAILY 2 Days Qty: 2 0RF Rx Instructions: start on day 2 of therapy Continued clopidogrel 75 mg tablet 75 mg PO DAILY Qty: 90 1RF aspirin [Adult Low Dose Aspirin] 81 mg tablet,delayed release (DR/EC) 81 mg PO DAILY (DME) Disabled Parking See Rx Instructions .ROUTE .MEDSUPPLY Qty: 1 0RF Rx Instructions: Patient qualifies for disabled parking as per the attached form. amlodipine 10 mg tablet 10 mg PO DAILY Qty: 90 3RF citalopram 10 mg tablet 10 mg PO DAILY Qty: 90 3RF Discontinued losartan-hydrochlorothiazide 100-12.5 mg tablet 1 tab PO DAILY Qty: 90 1RF Follow up/Referrals: Clement Thompson MD [Primary Care Provider] - Discharge Health Status Multidrug resistant organism: No MDRO Diet/Activity/Treatments Diet: Diet as Tolerated Visit Report/Discharge Packet Stand Alone Forms: Patient Portal/API, Stroke Signs & Symptoms Discharge Data Primary Care Provider: Clement Thompson Attending Provider: Clement Thompson Admit Date/Time: 02/16/23 01:22
[2023-02-17] MEDS: AMLODIPINE 5 MG TABLET 10 MG PO (12:31)
[2023-02-17] MEDS: cefTRIAXone 2,000 MG in SODIUM CHLORIDE 0.9% 100 ML 200 MG IV (12:41)
[2023-02-17] MEDS: AZITHROMYCIN 500 MG in DEXTROSE 5% IN WATER 250 ML 250 MG IV (13:17)
[2023-02-17] MEDS: HYDROCODONE/ACET 5/325 TABLET 1 TAB PO (13:40)
[2023-02-17 13:58] LABS: HEMOLYSIS < 15 (0-50); Iron 29 ug/dL (49-181)
[2023-02-17 14:09] LABS: Percent Iron Saturation 15 % (20-50); Total Iron Binding Capacity 192 ug/dL (261-462); Transferrin 135 mg/dL (206-381)
== END 2023-02-17 15:07 | disposition home health service (06) | DRG 195 ==
LOC: ED 02-16 01:22 → AC 02-16 01:33 → ICU 02-16 12:12 → AC 02-18 06:41 → ICU 02-18 06:41
PROVIDERS: Family Medicine; Admitting Provider Internal Medicine; Emergency Provider Emergency Medicine; PCP Internal Medicine; Referring Provider Emergency Medicine; Visit Provider Internal Medicine
DX: J18.9 Pneumonia, unspecified organism (principal); I12.9 Hypertensive chronic kidney disease with stage 1 through stage 4 chronic kidney disease, or unspecified chronic kidney disease; N18.32 Chronic kidney disease, stage 3b; F32.A Depression, unspecified; Z66 Do not resuscitate; Z86.73 Personal history of transient ischemic attack (TIA), and cerebral infarction without residual deficits; Z87.891 Personal history of nicotine dependence
CPT/HCPCS: 36415; 71045; 80048; 80053; 81001; 82962; 83540; 83550; 83605; 83690; 83735; 84484; 85025; 87040; 87633; 96365; 96366; 96368; 96375; 97116; 97162; 97530; 99284; G0378; J0696; J2405

== ENCOUNTER → 2023-03-05 12:17 | Outpatient (CLI) | payer MEDICARE, OTHER, SELFPAY ==
[2023-02-20 14:43] VITALS: BMI 23.4
[2023-03-05 13:07] LABS: Add Manual Diff / Slide Review NO; Basophils Absolute Auto 100 /uL (0-100); Eosinophils Absolute Auto 300 /uL (0-450); Eosinophils Percent Auto 3.7 % (2-4); Hematocrit 28.4 % (41-53); Hemoglobin 9.5 g/dL (13.5-17.5); Lymphocytes Absolute Auto 1300 /uL (1100-4500); Lymphocytes Percent Auto 17.4 % (25-40); Mean Corpuscular HGB Conc 33.5 % (30-36); Mean Corpuscular Volume 89.4 fL (80-100); Monocytes Absolute Auto 700 /uL (0-900); Monocytes Percent Auto 9.1 % (3-14); Neutrophils Absolute Auto 5100 /uL (1500-7000); Neutrophils Percent Auto 68.8 % (50-75); Platelet Count 407 X10^3/uL (150-400); Red Blood Cell Count 3.18 X10^6/uL (4.5-5.9); Red Cell Distribution Width 14.7 % (11.6-14.8); White Blood Cell Count 7.4 X10^3/uL (4.5-11.0)
[2023-03-05 20:45] LABS: Alanine Aminotransferase 23 IU/L (<50); Albumin 4.3 g/dL (3.5-5.0); Albumin Globulin Ratio 1.2 (1.0-2.8); Alkaline Phosphatase 92 U/L (38-126); Aspartate Aminotransferase 34 IU/L (17-59); BUN Creatinine Ratio 24.1 (6-22); Bilirubin Total 0.5 mg/dL (0.2-1.3); Blood Urea Nitrogen 39 mg/dL (9-20); Calcium 9.5 mg/dL (8.4-10.2); Carbon Dioxide 24 mmol/L (22-32); Chloride 107 mmol/L (98-107); Estimated Glomerular Filt Rate 41 mL/min (>60); Globulin 3.6 g/dL (1.7-4.1); Glucose 116 mg/dL (80-110); HEMOLYSIS < 15 (0-50); Potassium 4.8 mmol/L (3.4-5.1); Sodium 138 mmol/L (137-145); Total Protein 7.9 g/dL (6.3-8.2)
== END ==
PROVIDERS: PCP Internal Medicine; Referring Provider Internal Medicine; Visit Provider Internal Medicine
DX: D64.9 Anemia, unspecified (principal); E11.9 Type 2 diabetes mellitus without complications; E61.1 Iron deficiency
CPT/HCPCS: 36415; 80053; 83036; 85025

== ENCOUNTER → 2023-04-11 12:08 | Outpatient (CLI) | payer OTHER, SELFPAY ==
[2023-02-20 14:43] VITALS: BMI 23.4
[2023-04-11 13:02] LABS: Add Manual Diff / Slide Review NO; Basophils Absolute Auto 100 /uL (0-100); Basophils Percent Auto 1.2 % (0-2); Eosinophils Absolute Auto 400 /uL (0-450); Hematocrit 27.8 % (41-53); Hemoglobin 9.3 g/dL (13.5-17.5); Lymphocytes Absolute Auto 1300 /uL (1100-4500); Lymphocytes Percent Auto 17.9 % (25-40); Mean Corpuscular HGB Conc 33.5 % (30-36); Mean Corpuscular Hemoglobin 29.7 PG (26-34); Mean Corpuscular Volume 88.8 fL (80-100); Monocytes Absolute Auto 700 /uL (0-900); Neutrophils Absolute Auto 4900 /uL (1500-7000); Neutrophils Percent Auto 66.9 % (50-75); Platelet Count 377 X10^3/uL (150-400); Red Blood Cell Count 3.13 X10^6/uL (4.5-5.9); Red Cell Distribution Width 15.1 % (11.6-14.8); White Blood Cell Count 7.3 X10^3/uL (4.5-11.0)
[2023-04-11 13:33] LABS: Alanine Aminotransferase 35 IU/L (<50); Albumin 4.1 g/dL (3.5-5.0); Albumin Globulin Ratio 1.2 (1.0-2.8); Alkaline Phosphatase 71 U/L (38-126); Bilirubin Total 0.4 mg/dL (0.2-1.3); Blood Urea Nitrogen 31 mg/dL (9-20); Calcium 9.1 mg/dL (8.4-10.2); Carbon Dioxide 26 mmol/L (22-32); Chloride 104 mmol/L (98-107); Estimated Glomerular Filt Rate 49 mL/min (>60); Globulin 3.5 g/dL (1.7-4.1); Glucose 153 mg/dL (80-110); HEMOLYSIS < 15 (0-50); Potassium 4.9 mmol/L (3.4-5.1); Sodium 139 mmol/L (137-145); Total Protein 7.6 g/dL (6.3-8.2)
[2023-04-11 13:47] LABS: HEMOLYSIS < 15 (0-50); Iron 87 ug/dL (49-181)
[2023-04-11 14:01] LABS: Percent Iron Saturation 33 % (20-50); Total Iron Binding Capacity 267 ug/dL (261-462); Transferrin 235 mg/dL (206-381)
[2023-04-12 15:18] LABS: Aspartate Aminotransferase 33 IU/L (17-59)
== END ==
PROVIDERS: PCP Internal Medicine; Referring Provider Internal Medicine; Visit Provider Internal Medicine
DX: E61.1 Iron deficiency (principal); D64.9 Anemia, unspecified; N18.31 Chronic kidney disease, stage 3a; I10 Essential (primary) hypertension
CPT/HCPCS: 36415; 80053; 83540; 83550; 85025

== ENCOUNTER → 2023-10-23 08:55 | Outpatient (CLI) | payer OTHER, SELFPAY ==
[2023-02-20 14:43] VITALS: BMI 23.4
[2023-10-23 09:44] LABS: Add Manual Diff / Slide Review NO; Basophils Absolute Auto 100 /uL (0-100); Eosinophils Absolute Auto 300 /uL (0-450); Eosinophils Percent Auto 4.2 % (2-4); Hematocrit 28.6 % (41-53); Hemoglobin 9.7 g/dL (13.5-17.5); Lymphocytes Absolute Auto 1800 /uL (1100-4500); Lymphocytes Percent Auto 23.2 % (25-40); Mean Corpuscular HGB Conc 33.9 % (30-36); Mean Corpuscular Hemoglobin 30.6 PG (26-34); Mean Corpuscular Volume 90.3 fL (80-100); Monocytes Absolute Auto 700 /uL (0-900); Neutrophils Absolute Auto 4800 /uL (1500-7000); Neutrophils Percent Auto 62.6 % (50-75); Platelet Count 299 X10^3/uL (150-400); Red Blood Cell Count 3.17 X10^6/uL (4.5-5.9); Red Cell Distribution Width 13.8 % (11.6-14.8); White Blood Cell Count 7.7 X10^3/uL (4.5-11.0)
[2023-10-23 09:55] LABS: Hemoglobin A1C% w Est Avg Glu 5.7 % (4.0-6.0)
[2023-10-23 10:05] LABS: Alanine Aminotransferase 20 IU/L (<50); Albumin 4.3 g/dL (3.5-5.0); Albumin Globulin Ratio 1.5 (1.0-2.8); Alkaline Phosphatase 99 U/L (38-126); Aspartate Aminotransferase 22 IU/L (17-59); BUN Creatinine Ratio 18.1 (6-22); Bilirubin Total 0.3 mg/dL (0.2-1.3); Blood Urea Nitrogen 34 mg/dL (9-20); Calcium 9.4 mg/dL (8.4-10.2); Carbon Dioxide 25 mmol/L (22-32); Chloride 109 mmol/L (98-107); Estimated Glomerular Filt Rate 34 mL/min (>60); Globulin 2.9 g/dL (1.7-4.1); Glucose 125 mg/dL (80-110); HEMOLYSIS < 15 (0-50); Sodium 140 mmol/L (137-145); Total Protein 7.2 g/dL (6.3-8.2)
[2023-10-23 10:07] LABS: Potassium 5.4 mmol/L (3.4-5.1)
[2023-10-23 10:10] LABS: HEMOLYSIS < 15 (0-50); Iron 98 ug/dL (49-181)
[2023-10-23 10:20] LABS: Percent Iron Saturation 34 % (20-50); Total Iron Binding Capacity 286 ug/dL (261-462)
[2023-10-24 08:00] LABS: Transferrin 222 mg/dL (206-381)
== END ==
PROVIDERS: PCP Internal Medicine; Referring Provider Internal Medicine; Visit Provider Internal Medicine
DX: E61.1 Iron deficiency (principal); E11.9 Type 2 diabetes mellitus without complications; N18.31 Chronic kidney disease, stage 3a; D64.9 Anemia, unspecified; I10 Essential (primary) hypertension
CPT/HCPCS: 36415; 80053; 83036; 83540; 83550; 85025

== ENCOUNTER → 2024-07-29 12:00 | Outpatient (CLI) | payer MEDICARE, OTHER, SELFPAY ==
[2023-02-20 14:43] VITALS: BMI 23.4
--- NOTE | 2024-07-29 12:34 | DI.MRI.S_ITS ---
PROCEDURE: MR HEAD/BRAIN WO/W CON INDICATIONS: worsening memory/dementia concerns; hx of stroke TECHNIQUE: Noncontrast axial T1 spin echo, axial T2 fast spin echo, sagittal and axial FLAIR, coronal T2 fast spin echo, axial gradient echo, axial diffusion and ADC through the brain. After the administration of contrast, axial and coronal and sagittal T1 spin echo with fat saturation through the brain. COMPARISON: None. FINDINGS: Image quality: Excellent. CSF spaces: Basal cisterns are patent. No extra-axial fluid collections. Ventricles are normal in size and shape. Brain: No midline shift. No intracranial bleeds or masses. No abnormal intracranial enhancement. There is moderate cerebral volume loss for age. There is minimal periventricular white matter chronic small vessel ischemic change. The brainstem appears normal. Diffusion-weighted images demonstrate no acute infarct. Small chronic right frontal lacunar infarct. Normal intravascular flow voids are present. Dural sinuses demonstrate normal postcontrast enhancement. Skull and face: Calvarial marrow is normal in signal. Orbits appear normal. Sinuses: Sinuses and mastoids appear clear. IMPRESSION: No acute intracranial disease process. No abnormal intracranial mass or suspicious postcontrast enhancement. No acute infarcts. Small chronic right frontal lacunar infarct. Moderate, diffuse cerebral volume loss. Minimal periventricular and subcortical white matter chronic microvascular ischemic change. Dictated by: Park Colindres MD, PhD on 07/29/2024 at 13:34 Approved by: Park Colindres MD, PhD on 07/29/2024 at 13:38
== END ==
PROVIDERS: PCP Family Medicine; Referring Provider Family Medicine; Visit Provider Family Medicine
DX: I63.9 Cerebral infarction, unspecified (principal); G31.84 Mild cognitive impairment of uncertain or unknown etiology
CPT/HCPCS: 70553; A9579

== ENCOUNTER → 2024-10-24 12:04 | Outpatient (CLI) | payer MEDICARE, OTHER, SELFPAY ==
[2023-02-20 14:43] VITALS: BMI 23.4
[2024-10-24 12:22] LABS: Add Manual Diff / Slide Review NO; Hematocrit 33.3 % (41-53); Hemoglobin 11.2 g/dL (13.5-17.5); Lymphocytes Absolute Auto 1400 /uL (1100-4500); Mean Corpuscular HGB Conc 33.5 % (30-36); Mean Corpuscular Hemoglobin 29.3 PG (26-34); Mean Corpuscular Volume 87.6 fL (80-100); Platelet Count 322 X10^3/uL (150-400)
[2024-10-24 12:48] LABS: Hemoglobin A1C% w Est Avg Glu 5.9 % (4.0-6.0)
[2024-10-24 13:42] LABS: Alanine Aminotransferase 15 IU/L (<50); Albumin 4.2 g/dL (3.5-5.0); Albumin Globulin Ratio 1.4 (1.0-2.8); Alkaline Phosphatase 112 U/L (38-126); Blood Urea Nitrogen 31 mg/dL (9-20); Calcium 8.8 mg/dL (8.4-10.2); Carbon Dioxide 22 mmol/L (22-32); Chloride 108 mmol/L (98-107); Cholesterol 180 mg/dL (140-199); Estimated Glomerular Filt Rate 36 mL/min (>60); Globulin 2.9 g/dL (1.7-4.1); Glucose 128 mg/dL (70-99); HDL Cholesterol 42 mg/dL (40-60); HEMOLYSIS < 15 (0-50); Potassium 5.0 mmol/L (3.4-5.1); Sodium 140 mmol/L (137-145); Total Protein 7.1 g/dL (6.3-8.2); Triglycerides 152 mg/dL (35-150)
== END ==
PROVIDERS: PCP Family Medicine; Referring Provider Family Medicine; Visit Provider Family Medicine
DX: E11.9 Type 2 diabetes mellitus without complications (principal); I10 Essential (primary) hypertension; E61.1 Iron deficiency; E78.5 Hyperlipidemia, unspecified
CPT/HCPCS: 36415; 80053; 80061; 83036; 85025

== ENCOUNTER → 2025-01-27 13:11 | Outpatient (CLI) | payer MEDICARE, OTHER, SELFPAY ==
[2023-02-20 14:43] VITALS: BMI 23.4
[2025-01-27 13:49] LABS: Hemoglobin A1C% w Est Avg Glu 5.9 % (4.0-6.0)
== END ==
PROVIDERS: PCP Family Medicine; Referring Provider Family Medicine; Visit Provider Family Medicine
DX: E09.22 Drug or chemical induced diabetes mellitus with diabetic chronic kidney disease (principal)
CPT/HCPCS: 36415; 83036

== ENCOUNTER → 2025-03-03 11:14 | Outpatient (CLI) | payer MEDICARE, OTHER, SELFPAY ==
[2023-02-20 14:43] VITALS: BMI 23.4
[2025-03-03 12:27] LABS: Microalbumi Creatinin Ratio Ur 175.0 ug/mg CR (<30)
== END ==
PROVIDERS: PCP Family Medicine; Referring Provider Internal Medicine Nephrology; Visit Provider Internal Medicine Nephrology
DX: E11.9 Type 2 diabetes mellitus without complications (principal)
CPT/HCPCS: 82043; 82570